=== PATIENT | male | born 1945 | race Caucasian/White ===

== ENCOUNTER 2017-03-16 04:01 | Emergency (ER) | payer MEDICARE, BC ==
[2017-03-16] MEDS ORDERED: HYDROCODONE/ACETAMINOPHEN 5-325 MG TABLET PO ONE (04:10)
[2017-03-16] MEDS ORDERED: ONDANSETRON 4 MG TAB.RAPDIS PO ONE (04:11)
[2017-03-16 04:43] LABS: ABSOLUTE EOSINOPHILS # (AUTO) 0.3 10^3/uL (0.0-0.6); ABSOLUTE LYMPHOCYTES (AUTO) 0.8 10^3/uL (0.5-4.7); ABSOLUTE MONOCYTES (AUTO) 0.7 10^3/uL (0.1-1.4); ABSOLUTE NEUT (AUTO) 4.9 10^3/uL (1.7-8.2); BASOPHILS % (AUTO) 0.5 % (0-2); EOSINOPHILS % (AUTO) 3.8 % (0-6); HEMOGLOBIN 14.4 g/dL (13.5-17.0); HGB HCT DIFFERENCE 1.2; LYMPHOCYTES % (AUTO) 12.5 % (13-45); MEAN CORPUSCULAR HEMOGLOBIN 32.9 pg (27.0-33.4); MEAN CORPUSCULAR HGB CONC 34.3 g/dL (32.0-36.0); MEAN CORPUSCULAR VOLUME 96 fl (80-97); MONOCYTES % (AUTO) 10.4 % (3-13); RED BLOOD COUNT 4.38 10^6/uL (4.35-5.55); RED CELL DISTRIBUTION WIDTH 15.1 % (11.5-14.0); SEGMENTED NEUTROPHILS % (AUTO) 72.8 % (42-78); WHITE BLOOD COUNT 6.7 10^3/uL (4.0-10.5)
[2017-03-16 04:57] LABS: ALANINE AMINOTRANSFERASE 28 U/L (21-72); ALBUMIN 4.4 g/dL (3.5-5.0); ALKALINE PHOSPHATASE 53 U/L (38-126); ANION GAP 16 (5-19); ASPARTATE AMINO TRANSFERASE 19 U/L (17-59); BILIRUBIN,DIRECT 0.4 mg/dL (0.0-0.4); BILIRUBIN,TOTAL 0.6 mg/dL (0.2-1.3); BLOOD UREA NITROGEN 23 mg/dL (7-20); CALCIUM 10.1 mg/dL (8.4-10.2); CARBON DIOXIDE 21 mmol/L (22-30); CHLORIDE 105 mmol/L (98-107); GLUCOSE 201 mg/dL (75-110); LIPASE 317.5 U/L (23-300); POTASSIUM 4.7 mmol/L (3.6-5.0); SODIUM 141.6 mmol/L (137-145); TOTAL PROTEIN 7.8 g/dL (6.3-8.2)
[2017-03-16 06:27] LABS: APPEARANCE,URINE SLIGHTLY-CLOUDY; BILIRUBIN,URINE NEGATIVE (NEGATIVE); GLUCOSE, URINE NEGATIVE (NEGATIVE); KETONES,URINE NEGATIVE (NEGATIVE); LEUKOCYTE ESTERASE,URINE MODERATE (NEGATIVE); NITRITE,URINE NEGATIVE (NEGATIVE); PROTEIN,URINE NEGATIVE (NEGATIVE); URINE SPECIFIC GRAVITY 1.012; UROBILINOGEN,URINE NEGATIVE mg/dL (<2.0)
--- NOTE | 2017-03-16 06:39 | ER Document Report ---
ED General - General Time seen by provider: 06:38 Mode of Arrival: Ambulatory TRAVEL OUTSIDE OF THE [place] IN LAST 30 DAYS: No - HPI Onset: Other - see HPI note Similar symptoms previously: Yes Recently seen / treated by doctor: No <TETO WOO - Last Filed: 03/16/17 07:30> <BECKY PEARSON - Last Filed: 03/16/17 09:29> - General Chief Complaint: Flank Pain Stated Complaint: FLANK AND STOMACH PAIN Notes: Patient is a 71 year old male presenting to the emergency department for flank pain. Patient states his pain was onset suddenly at 22:00 last night. Patient has had similar pain previously associated to a kidney stone. Patient was last seen in the emergency department for a kidney stone on 05/05/16 and it was removed 1 week later. Patient complains of nausea but denies any vomiting or fevers. Patient is a smoker and spouse states the patient had some cold like symptoms earlier this week. Patient' primary care physician is Dr. Barnes. (TETO WOO) - Related Data Allergies/Adverse Reactions: Iodinated Contrast Media - Oral and Allergy (Intermediate, Verified 05/05/16 10: 31) itching latex [Latex] Allergy (Verified 05/05/16 10:31) Past Medical History - General Information source: Patient, Relative - spouse - Social History Smoking Status: Current Every Day Smoker Cigarette use (# per day): Yes - 3/4 ppd Chew tobacco use (# tins/day): No Family History: None Patient has suicidal ideation: No Patient has homicidal ideation: No - Past Medical History Cardiac Medical History: Reports: Hx Coronary Artery Disease, Hx Heart Attack - 1, Hx Hypercholesterolemia, Hx Hypertension Pulmonary Medical History: Reports: Hx COPD, Hx Pneumonia Neurological Medical History: Reports: Hx Cerebrovascular Accident - x2, last one 2 years ago Endocrine Medical History: Reports: Hx Diabetes Mellitus Type 2 Renal/ Medical History: Reports: Hx Benign Prostatic Hyperplasia, Hx Kidney Stones Malignancy Medical History: Reports Hx Colorectal Cancer, Reports Hx Skin Cancer GI Medical History: Reports: Hx Diverticulitis Musculoskeltal Medical History: Reports Hx Arthritis, Reports Hx Musculoskeletal Trauma Psychiatric Medical History: Reports: Hx Anxiety, Hx Depression Traumatic Medical History: Reports: Hx Fractures Past Surgical History: Reports: Hx Appendectomy, Hx Bowel Surgery - resection, Hx Cardiac Catheterization, Hx Cardiac Surgery - right carotid, Hx Carotid Endarterectomy - Right carotid endarterectomy, Hx Coronary Stent - TOTAL OF 3 STENTS. Last one placed in December 2012., Hx Kidney (Renal Surgery) - lithotripsy, kidney stent, Hx Orthopedic Surgery - right shoulder, left knee - Immunizations Immunizations up to date: Yes Hx Diphtheria, Pertussis, Tetanus Vaccination: Yes <TETO WOO - Last Filed: 03/16/17 07:30> Review of Systems - Review of Systems Constitutional: No symptoms reported EENT: No symptoms reported Cardiovascular: No symptoms reported Respiratory: No symptoms reported Gastrointestinal: No symptoms reported Genitourinary: See HPI, Flank pain Male Genitourinary: No symptoms reported Musculoskeletal: No symptoms reported Skin: No symptoms reported Hematologic/Lymphatic: No symptoms reported Neurological/Psychological: No symptoms reported -: Yes All other systems reviewed and negative <TETO WOO - Last Filed: 03/16/17 07:30> Physical Exam - Vital signs Interpretation: Normal - General General appearance: Appears well, Alert In distress: Mild - HEENT Head: Normocephalic, Atraumatic Eyes: Normal Pupils: PERRL Mucous membranes: Moist - Respiratory Respiratory status: No respiratory distress Chest status: Nontender Breath sounds: Rhonchi, Wheezing Chest palpation: Normal - Cardiovascular Rhythm: Regular Heart sounds: Normal auscultation Murmur: No - Abdominal Inspection: Normal Distension: No distension Bowel sounds: Normal Tenderness: Nontender Organomegaly: No organomegaly - Back Back: Normal, Tender - left CVA tenderness and left lumbar musculature tenderness - Extremities General upper extremity: Normal inspection, Normal ROM, Normal strength General lower extremity: Normal inspection, Normal ROM, Normal strength - Neurological Neuro grossly intact: Yes Cognition: Normal Orientation: AAOx4 B[place] Coma Scale Eye Opening: Spontaneous Sergio Coma Scale Verbal: Oriented [place] Coma Scale Motor: Obeys Commands Sergio Coma Scale Total: 15 Speech: Normal Sensory: Normal - Psychological Associated symptoms: Normal affect, Normal mood - Skin Skin Temperature: Warm Skin Moisture: Dry <TETO WOO - Last Filed: 03/16/17 07:30> Course - Laboratory Result Diagrams: 03/16/17 04:28 03/16/17 04:28 <TETO WOO - Last Filed: 03/16/17 07:30> - Laboratory Result Diagrams: 03/16/17 04:28 03/16/17 04:28 - Diagnostic Test Radiology reviewed: Image reviewed, Reports reviewed - This CT limited stone protocol shows a 3 mm left distal ureteral stone with moderate hydronephrosis and hydroureter. There is also a suspicious nodule with satellite nodule seen in the right lower lobe. A contrasted CT scan shows a 2.6 cm soft tissue nodule in the right lower lobe with multiple small subcentimeter nodules throughout the right middle and upper lobes. - Consults Dr. Vincent Time consulted: 09:00 Consulted provider: follow-up in office <BECKY PEARSON - Last Filed: 03/16/17 09:29> - Re-evaluation Re-evalutation: 03/16/17 07:06 Patient reports he is allergic to iodinated IV contrast media. He states it causes him to itch. He states he is usually pretreated with Benadryl and steroids prior to receiving IV contrast. He also reports he had recently been wheezing and coughing some. 03/16/17 09:29 Patient reports his wheezing and breathing feels much better after the breathing treatment. He does not use inhalers or nebulizers at home. (BECKY PEARSON) - Vital Signs Vital signs: Temp Pulse Resp BP Pulse Ox 97.9 F 68 20 139/79 H 95 03/16/17 08:47 03/16/17 08:47 03/16/17 04:05 03/16/17 08:47 03/16/17 08:47 - Laboratory Laboratory results interpreted by me: 03/16/17 03/16/17 03/16/17 04:10 04:28 04:28 RDW 15.1 H Lymphocytes % 12.5 L Carbon Dioxide 21 L BUN 23 H Creatinine 1.40 H Est GFR (Non-Af Amer) 50 L Glucose 201 H Lipase 317.5 H Urine Blood LARGE H Ur Leukocyte Esterase MODERATE H Discharge <TETO WOO - Last Filed: 03/16/17 07:30> <BECKY PEARSON - Last Filed: 03/16/17 09:29> - Discharge Clinical Impression: Calculus of distal left ureter, Pulmonary nodules/lesions, multiple, Bronchitis with bronchospasm Urinary tract infection Qualifiers: Urinary tract infection type: site unspecified Hematuria presence: with hematuria Qualified Code(s): N39.0 - Urinary tract infection, site not specified COPD (chronic obstructive pulmonary disease) with emphysema Qualifiers: Emphysema type: unspecified Qualified Code(s): J43.9 - Emphysema, unspecified Condition: Stable Disposition: HOME, SELF-CARE Additional Instructions: The CT scan show you have a 3 mm stone in the left distal ureter. Your also found to have multiple nodules in the right lung. The urine suggested a urinary tract infection. You are wheezing due to your underlying COPD and possible recent upper respiratory tract infection. Take the medication as prescribed and drink plenty of fluids. Use the inhaler as dispensed, 2 puffs every 4-6 hours as needed for wheezing. Follow-up with your primary care provider this week for reevaluation of your wheezing. Follow-up with your urologist if you do not pass the kidney stone. Go to see Dr. Vincent at [facility] now. Prescriptions: Ciprofloxacin HCl [Cipro 500 mg Tablet] 500 mg PO BID #10 tablet Oxycodone HCl/Acetaminophen [Percocet 5-325 mg Tablet] 1 - 2 tab PO ASDIR PRN # 15 tablet PRN Reason: Referrals: ISAIAH VINCENT MD [ACTIVE STAFF] - 03/16/17 AISHWARYA BARNES MD [COMMUNITY BASED STAFF] - Follow up as needed Scribe Attestation: 03/16/17 09:28 I personally performed the services described in the documentation, reviewed and edited the documentation which was dictated to the scribe in my presence, and it accurately records my words and actions. (BECKY PEARSON) Scribe Documentation - Scribe Written by Scribe:: Teto Woo 03/16/17 7:40 acting as scribe for :: Yeison <TETO WOO - Last Filed: 03/16/17 07:30>
[2017-03-16] MEDS ORDERED: NORMAL SALINE 1000 ML 1,000 ML IV ONE (06:46)
[2017-03-16] MEDS ORDERED: ONDANSETRON HCL INJ/PF 4 MG/2 ML SDV IV ONE (06:47)
[2017-03-16] MEDS ORDERED: MORPHINE SULFATE 10 MG/ML INJ IV ONE ×2 (06:47→09:05)
[2017-03-16] MEDS ORDERED: METHYLPREDNISOLONE INJ 125 MG/2 ML SDV IV ONE (07:05)
[2017-03-16] MEDS ORDERED: DIPHENHYDRAMINE HCL 50 MG/ML VIAL IV ONE (07:05)
[2017-03-16] MEDS ORDERED: IPRATROPIUM/ALBUTEROL 0.5-2.5 MG/3 ML AMPUL NEB ONE (07:05)
[2017-03-16] MEDS ORDERED: CEFTRIAXONE 1 GM/D5W RTU 50 ML IV ONE (09:05)
[2017-03-16] MEDS ORDERED: ALBUTEROL SULFATE HFA (90 MCG/PUFF) 8 GM MDI (1 MDI/ER DISP) IH ONE (09:28)
[2017-03-16] MEDS ORDERED: HYDROCODONE/ACETAMINOPHEN 5-325 MG 6 TAB/DSPK PO PRN (09:28)
[2017-03-16] MEDS ORDERED: CIPROFLOXACIN HCL 500 MG TABLET PO ONE (09:29)
[2017-03-16 10:57] VITALS: BP 141/87
== END 2017-03-16 10:57 | disposition home or self-care (01) ==
LOC: ER 04:01
DX: N20.1 Calculus of ureter (principal); N39.0 Urinary tract infection, site not specified; R91.8 Other nonspecific abnormal finding of lung field; J44.9 Chronic obstructive pulmonary disease, unspecified; J20.9 Acute bronchitis, unspecified; J43.9 Emphysema, unspecified; R10.9 Unspecified abdominal pain; R11.0 Nausea; F17.210 Nicotine dependence, cigarettes, uncomplicated; Z87.442 Personal history of urinary calculi; Z91.040 Latex allergy status
CPT/HCPCS: 96376; 94640 ×2; 99284; 96361; 96375; 96365; 36415; 87086; 83690; 85025; 87088; 80053; 81001; 87186; 71260; 76380; A9270 ×5; J1200; J2930; J2270; J2405; J7030; J0696; J3490; J7620; S0119

== ENCOUNTER → 2017-03-27 | Outpatient (CLI) | payer MEDICARE, BC | LOC: RAD 21:42 | PROVIDERS: ATTEND Internal Medicine | DX: C34.31 Malignant neoplasm of lower lobe, right bronchus or lung (principal) | CPT/HCPCS: 78815; A9552 ==

== ENCOUNTER → 2017-04-08 | Outpatient (CLI) | payer MEDICARE, BC | LOC: RAD 09:03 | PROVIDERS: ATTEND Internal Medicine | DX: C34.31 Malignant neoplasm of lower lobe, right bronchus or lung (principal) | CPT/HCPCS: 70553; A9577 ==

== ENCOUNTER → 2017-10-25 | Outpatient (CLI) | payer MEDICARE, BC ==
--- NOTE | 2017-10-25 10:41 | RADIOLOGY REPORT (SQ) ---
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 CT from outside facility dated 06/30/2017. TECHNIQUE: CT scan performed of the chest without intravenous contrast. Images reviewed with lung, soft tissue and bone windows. Reconstructed coronal and sagittal MPR images reviewed. All images st ored on PACS. All CT scanners at this facility use dose modulation, iterative reconstruction, and/or weight based d osing when appropriate to reduce radiation dose to as low as reasonably achievable (ALARA). [facility]: Dose Right [facility]: CareDose [facility]: Dose Right [facility]: Teradose 4D [facility]: [employer] RADIATION DOSE: CT Rad equipment meets quality standard of care and radiation dose reduction techniq ues were employed. CTDIvol: 15.0 mGy. DLP: 562 mGy-cm. mGy. LIMITATIONS: No technical limitations. FINDINGS: LUNGS AND PLEURA: Mild emphysematous changes. Surgical changes with resection of the righ t lower lobe mass. No masses, infiltrates, pneumothorax. No pleural effusions, calcifications. HILAR AND MEDIASTINAL STRUCTURES: No identified masses or abnormal nodes. No obvious aneurysm. HEART AND VASCULAR STRUCTURES: No aneurysm. No pericardial effusion. UPPER ABDOMEN: No significant findings. Limited exam. THYROID AND OTHER SOFT TISSUES: No masses. No adenopathy. BONES: No significant finding. HARDWARE: None in the chest. OTHER: No other significant findings. IMPRESSION: SURGICAL CHANGES WITH RESECTION OF THE RIGHT LOWER LOBE MASS. NO OTHER SIGNIFICANT FIND ING ON NON-CONTRASTED CHEST CT. TECHNICAL DOCUMENTATION: JOB ID: [id number] Quality ID # 436: Final reports with documentation of one or more dose reduction techniques (e.g., Au tomated exposure control, adjustment of the mA and/or kV according to patient size, use of iterative reconstruction technique) 2010 [employer]- All Rights Reserved
== END ==
LOC: RAD 08:22
PROVIDERS: ATTEND Internal Medicine
DX: C34.31 Malignant neoplasm of lower lobe, right bronchus or lung (principal)
CPT/HCPCS: 71250

== ENCOUNTER → 2018-01-16 | Outpatient (CLI) | payer MEDICARE, BC ==
--- NOTE | 2018-01-16 10:06 | RADIOLOGY REPORT (SQ) ---
EXAM DESCRIPTION: CT CHEST WITHOUT COMPLETED DATE/TIME: 01/16/2018 8:22 am REASON FOR STUDY: LUNG CA (C34.31) C34.31 MALIGNANT NEOPLASM OF LOWER LOBE, RIGHT BRONCHUS OR L COMPARISON: CT chest 10/25/2017, 03/16/2017 TECHNIQUE: CT scan performed of the chest without intravenous contrast. Images reviewed with lung, soft tissue and bone windows. Reconstructed coronal and sagittal MPR images reviewed. All images st ored on PACS. All CT scanners at this facility use dose modulation, iterative reconstruction, and/or weight based d osing when appropriate to reduce radiation dose to as low as reasonably achievable (ALARA). [facility]: Dose Right [facility]: CareDose [facility]: Dose Right [facility]: Teradose 4D [facility]: [employer] RADIATION DOSE: CT Rad equipment meets quality standard of care and radiation dose reduction techniq ues were employed. CTDIvol: 16.0 mGy. DLP: 613 mGy-cm. mGy. LIMITATIONS: No technical limitations. FINDINGS: LUNGS AND PLEURA: Post right lower lobectomy. There are surgical andrew along the customer marketing manager ior aspect of the right upper lobe. No infiltrates. No worrisome pulmonary nodules. No pleural effusion. No pneumothorax. HILAR AND MEDIASTINAL STRUCTURES: No identified masses or abnormal nodes. No obvious aneurysm. HEART AND VASCULAR STRUCTURES: No aneurysm. No pericardial effusion. Very heavy coronary artery dionna cification UPPER ABDOMEN: Bowel anastomotic andrew right upper quadrant. 1 cm cyst left mid pole kidney. THYROID AND OTHER SOFT TISSUES: No masses. No adenopathy. BONES: No significant finding. HARDWARE: None in the chest. OTHER: No other significant findings. IMPRESSION: No CT evidence of local recurrence or metastatic lung cancer over the chest. Post right lower lobectomy. TECHNICAL DOCUMENTATION: JOB ID: [id number] Quality ID # 436: Final reports with documentation of one or more dose reduction techniques (e.g., Au tomated exposure control, adjustment of the mA and/or kV according to patient size, use of iterative reconstruction technique) 2010 [employer]- All Rights Reserved Reading location - IP/workstation name: [email or web address]
== END ==
LOC: RAD 08:11
PROVIDERS: ATTEND Internal Medicine
DX: C34.31 Malignant neoplasm of lower lobe, right bronchus or lung (principal)
CPT/HCPCS: 71250

== ENCOUNTER → 2018-04-25 | Outpatient (CLI) | payer MEDICARE, BC ==
--- NOTE | 2018-04-25 15:06 | RADIOLOGY REPORT (SQ) ---
EXAM DESCRIPTION: CT CHEST WITHOUT COMPLETED DATE/TIME: 04/25/2018 9:19 am REASON FOR STUDY: LUNG CA C34.31 MALIGNANT NEOPLASM OF LOWER LOBE, RIGHT BRONCHUS OR L COMPARISON: 01/16/2018 and 10/25/2017. TECHNIQUE: CT scan performed of the chest without intravenous contrast. Images reviewed with lung, soft tissue and bone windows. Reconstructed coronal and sagittal MPR images reviewed. All images st ored on PACS. All CT scanners at this facility use dose modulation, iterative reconstruction, and/or weight based d osing when appropriate to reduce radiation dose to as low as reasonably achievable (ALARA). [facility]: Dose Right [facility]: CareDose [facility]: Dose Right [facility]: Teradose 4D [facility]: [employer] RADIATION DOSE: CT Rad equipment meets quality standard of care and radiation dose reduction techniq ues were employed. CTDIvol: 18.1 mGy. DLP: 694 mGy-cm. mGy. LIMITATIONS: No technical limitations. FINDINGS: LUNGS AND PLEURA: Stable surgical changes on the right. Mild scarring. Mild emphysematou s changes and mild bronchiectasis. No pulmonary nodules or masses. No pleural effusion or pleural t hickening. HILAR AND MEDIASTINAL STRUCTURES: No identified masses or abnormal nodes. No obvious aneurysm. HEART AND VASCULAR STRUCTURES: No aneurysm. Fairly extensive coronary artery calcifications. No per icardial effusion. UPPER ABDOMEN: No significant findings. Limited exam. THYROID AND OTHER SOFT TISSUES: No masses. No adenopathy. BONES: No significant finding. HARDWARE: None in the chest. OTHER: No other significant findings. IMPRESSION: STABLE NONCONTRAST CT OF THE CHEST. STABLE SURGICAL CHANGES AND CHRONIC FINDINGS. NO P ULMONARY NODULES OR MASSES. NO EVIDENCE OF RESIDUAL OR RECURRENT DISEASE OR METASTASIS. TECHNICAL DOCUMENTATION: JOB ID: [id number] Quality ID # 436: Final reports with documentation of one or more dose reduction techniques (e.g., Au tomated exposure control, adjustment of the mA and/or kV according to patient size, use of iterative reconstruction technique) 2010 [employer]- All Rights Reserved Reading location - IP/workstation name: [email or web address]
== END ==
LOC: RAD 08:53
PROVIDERS: ATTEND Physician Assistant Medical
DX: C34.31 Malignant neoplasm of lower lobe, right bronchus or lung (principal)
CPT/HCPCS: 71250

== ENCOUNTER → 2018-06-20 | Outpatient (CLI) | payer MEDICARE, BC ==
[2018-06-20 11:23] LABS: HEMOGLOBIN 14.3 g/dL (13.5-17.0); MEAN CORPUSCULAR HEMOGLOBIN 32.2 pg (27.0-33.4); MEAN CORPUSCULAR HGB CONC 34.1 g/dL (32.0-36.0); MEAN CORPUSCULAR VOLUME 94 fl (80-97); PLATELET COUNT 234 10^3/uL (150-450); RED BLOOD COUNT 4.45 10^6/uL (4.35-5.55); RED CELL DISTRIBUTION WIDTH 14.3 % (11.5-14.0); WHITE BLOOD COUNT 7.1 10^3/uL (4.0-10.5)
[2018-06-20 11:39] LABS: ALANINE AMINOTRANSFERASE 65 U/L (21-72); ALBUMIN 4.8 g/dL (3.5-5.0); ALKALINE PHOSPHATASE 49 U/L (38-126); ANION GAP 16 (5-19); ASPARTATE AMINO TRANSFERASE 41 U/L (17-59); BILIRUBIN,DIRECT 0.3 mg/dL (0.0-0.4); BILIRUBIN,TOTAL 0.5 mg/dL (0.2-1.3); BLOOD UREA NITROGEN 18 mg/dL (7-20); CARBON DIOXIDE 22 mmol/L (22-30); CHLORIDE 108 mmol/L (98-107); GLUCOSE 134 mg/dL (75-110); POTASSIUM 4.8 mmol/L (3.6-5.0); SODIUM 145.9 mmol/L (137-145); TOTAL PROTEIN 8.4 g/dL (6.3-8.2)
== END ==
LOC: LAB 10:33
PROVIDERS: ATTEND Nurse Practitioner Family
DX: R19.7 Diarrhea, unspecified (principal); R53.82 Chronic fatigue, unspecified
CPT/HCPCS: 36415; 80053; 85027; 87324; 87493

== ENCOUNTER → 2018-08-31 | Outpatient (CLI) | payer MEDICARE, BC ==
--- NOTE | 2018-08-31 10:53 | RADIOLOGY REPORT (SQ) ---
EXAM DESCRIPTION: CT CHEST WITHOUT COMPLETED DATE/TIME: 08/31/2018 10:09 am REASON FOR STUDY: MALIGNANT NEOPLASM OF LOWER LOBE, RIGHT BRONCHUS OR LUNG C34.31 MALIGNANT NEOPLAS M OF LOWER LOBE, RIGHT BRONCHUS OR L COMPARISON: 04/25/2018 TECHNIQUE: CT scan performed of the chest without intravenous contrast. Images reviewed with lung, soft tissue and bone windows. Reconstructed coronal and sagittal MPR images reviewed. All images st ored on PACS. All CT scanners at this facility use dose modulation, iterative reconstruction, and/or weight based d osing when appropriate to reduce radiation dose to as low as reasonably achievable (ALARA). [facility]: Dose Right [facility]: CareDose [facility]: Dose Right [facility]: Teradose 4D [facility]: [employer] RADIATION DOSE: CT Rad equipment meets quality standard of care and radiation dose reduction techniq ues were employed. CTDIvol: 16.6 mGy. DLP: 646 mGy-cm. mGy. LIMITATIONS: No technical limitations. FINDINGS: LUNGS AND PLEURA: Prior right lower lobectomy. No evidence of recurrence or metastases. No infiltrate. No pleural effusion. HILAR AND MEDIASTINAL STRUCTURES: No identified masses or abnormal nodes. No obvious aneurysm. HEART AND VASCULAR STRUCTURES: No aneurysm. No pericardial effusion. Coronary atherosclerosis UPPER ABDOMEN: No significant findings. Limited exam. THYROID AND OTHER SOFT TISSUES: No masses. No adenopathy. BONES: No significant finding. HARDWARE: None in the chest. OTHER: No other significant findings. IMPRESSION: Stable surgical changes with no evidence of recurrence or metastases. Coronary atherosc lerosis. TECHNICAL DOCUMENTATION: JOB ID: [id number] Quality ID # [id number]: Final reports with documentation of one or more dose reduction techniques (e.g., Au tomated exposure control, adjustment of the mA and/or kV according to patient size, use of iterative reconstruction technique) 2010 [employer]- All Rights Reserved Reading location - IP/workstation name: [email or web address]
== END ==
LOC: RAD 09:59
PROVIDERS: ATTEND Physician Assistant Medical
DX: C34.31 Malignant neoplasm of lower lobe, right bronchus or lung (principal); I25.10 Atherosclerotic heart disease of native coronary artery without angina pectoris
CPT/HCPCS: 71250

== ENCOUNTER 2018-11-20 12:38 | Emergency (ER) | payer MEDICARE, BC ==
[2018-11-20] MEDS ORDERED: NORMAL SALINE 1000 ML 1,000 ML IV ONE ×3 (13:03→15:44)
--- NOTE | 2018-11-20 13:04 | ER Document Report ---
ED Medical Screen (RME) - General Chief Complaint: Urinary Problem Stated Complaint: POSSIBLE BLOOD IN URINE Time Seen by Provider: 11/20/18 13:03 TRAVEL OUTSIDE OF THE [place] IN LAST 30 DAYS: No - HPI Notes: 11/20/18 13:03 Patient is a 73-year-old male that presents to the emergency department for chief complaint of hematuria. Patient has multiple complaints. He started having hematuria last night but has had urinary frequency for the past few days. He also complains of a bilateral lower abdominal pain that is burning and worse with urination. Patient reports low back pain for the last week. He has also had a sore throat for the last 2 weeks. He also is complaining of vertigo sensation when he lays down to go to bed for the last 2 weeks. He denies fevers.. ROS: GENERAL: Denies fever of chills CV: Denies chest pain PHYSICAL EXAMINATION: GENERAL: Well-appearing, well-nourished and in no acute distress. HEAD: Atraumatic, normocephalic. EYES: Pupils equal round extraocular movements intact, conjunctiva are normal. ENT: Nares patent NECK: Normal range of motion LUNGS: No respiratory distress Musculoskeletal: Normal range of motion NEUROLOGICAL: Normal speech, normal gait. PSYCH: Normal mood, normal affect. MDM: Patient seen and examined for rapid initial assessment. Vital signs reviewed. A comprehensive ED assessment and evaluation of the patient, analysis of test results and completion of the medical decision making process will be conducted by additional ED providers. - Related Data Allergies/Adverse Reactions: Iodinated Contrast- Oral and IV Dye Allergy (Intermediate, Verified 11/20/18 12:39) itching latex [Latex] Allergy (Verified 11/20/18 12:39) Past Medical History - Social History Chew tobacco use (# tins/day): No Frequency of alcohol use: None Drug Abuse: None - Past Medical History Cardiac Medical History: Reports: Hx Coronary Artery Disease, Hx Heart Attack - 1, Hx Hypercholesterolemia, Hx Hypertension Pulmonary Medical History: Reports: Hx COPD, Hx Pneumonia Neurological Medical History: Reports: Hx Cerebrovascular Accident - x2, last one 2 years ago Endocrine Medical History: Reports: Hx Diabetes Mellitus Type 2 Renal/ Medical History: Reports: Hx Benign Prostatic Hyperplasia, Hx Kidney Stones. Denies: Hx Peritoneal Dialysis Malignancy Medical History: Reports Hx Colorectal Cancer, Reports Hx Skin Cancer GI Medical History: Reports: Hx Diverticulitis Musculoskeltal Medical History: Reports Hx Arthritis, Reports Hx Musculoskeletal Trauma Psychiatric Medical History: Reports: Hx Anxiety, Hx Depression Traumatic Medical History: Reports: Hx Fractures Past Surgical History: Reports: Hx Appendectomy, Hx Bowel Surgery - resection, Hx Cardiac Catheterization, Hx Cardiac Surgery - right carotid, Hx Carotid Endarterectomy - Right carotid endarterectomy, Hx Coronary Stent - TOTAL OF 3 STENTS. Last one placed in December 2012., Hx Kidney (Renal Surgery) - lithotripsy, kidney stent, Hx Orthopedic Surgery - right shoulder, left knee - Immunizations Immunizations up to date: Yes Hx Diphtheria, Pertussis, Tetanus Vaccination: Yes Physical Exam - Vital signs Vitals: Temp Pulse Resp BP Pulse Ox 98.2 F 70 18 159/96 H 92 11/20/18 12:48 11/20/18 12:48 11/20/18 12:48 11/20/18 12:48 11/20/18 12:48 Course - Vital Signs Vital signs: Temp Pulse Resp BP Pulse Ox 98.2 F 70 18 159/96 H 92 11/20/18 12:48 11/20/18 12:48 11/20/18 12:48 11/20/18 12:48 11/20/18 12:48 Doctor's Discharge - Discharge Referrals: KP CARDENAS PA-C [Primary Care Provider] - Follow up as needed
[2018-11-20 13:25] LABS: APPEARANCE,URINE SLIGHTLY-CLOUDY; BILIRUBIN,URINE NEGATIVE (NEGATIVE); COLOR,URINE YELLOW; GLUCOSE, URINE >=500 mg/dL (NEGATIVE); KETONES,URINE NEGATIVE (NEGATIVE); LEUKOCYTE ESTERASE,URINE MODERATE (NEGATIVE); NITRITE,URINE NEGATIVE (NEGATIVE); PROTEIN,URINE NEGATIVE (NEGATIVE); URINE SPECIFIC GRAVITY 1.026; UROBILINOGEN,URINE NEGATIVE mg/dL (<2.0)
[2018-11-20 13:35] LABS: ABSOLUTE BASOPHILS # (AUTO) 0.1 10^3/uL (0.0-0.2); ABSOLUTE LYMPHOCYTES (AUTO) 0.8 10^3/uL (0.5-4.7); ABSOLUTE MONOCYTES (AUTO) 0.7 10^3/uL (0.1-1.4); ABSOLUTE NEUT (AUTO) 12.5 10^3/uL (1.7-8.2); BASOPHILS % (AUTO) 0.5 % (0-2); EOSINOPHILS % (AUTO) 0.1 % (0-6); HEMATOCRIT 45.1 % (37.9-51.0); HEMOGLOBIN 15.4 g/dL (13.5-17.0); LYMPHOCYTES % (AUTO) 5.6 % (13-45); MEAN CORPUSCULAR HEMOGLOBIN 32.5 pg (27.0-33.4); MEAN CORPUSCULAR HGB CONC 34.2 g/dL (32.0-36.0); MEAN CORPUSCULAR VOLUME 95 fl (80-97); MONOCYTES % (AUTO) 5.3 % (3-13); PLATELET COUNT 266 10^3/uL (150-450); RED BLOOD COUNT 4.74 10^6/uL (4.35-5.55); RED CELL DISTRIBUTION WIDTH 14.2 % (11.5-14.0); SEGMENTED NEUTROPHILS % (AUTO) 88.5 % (42-78); TOTAL CELLS COUNTED % (AUTO) 100 %; WHITE BLOOD COUNT 14.1 10^3/uL (4.0-10.5)
[2018-11-20 13:46] LABS: VENOUS BLOOD BASE EXCESS -2.2 mmol/L; VENOUS BLOOD HCO3 20.4 mmol/L (20-32); VENOUS BLOOD PH 7.45 (7.30-7.42)
[2018-11-20 13:58] LABS: ALANINE AMINOTRANSFERASE 102 U/L (21-72); ALBUMIN 4.7 g/dL (3.5-5.0); ALKALINE PHOSPHATASE 63 U/L (38-126); ANION GAP 17 (5-19); ASPARTATE AMINO TRANSFERASE 50 U/L (17-59); BILIRUBIN,DIRECT 0.3 mg/dL (0.0-0.4); BILIRUBIN,TOTAL 0.8 mg/dL (0.2-1.3); BLOOD UREA NITROGEN 26 mg/dL (7-20); CALCIUM 10.7 mg/dL (8.4-10.2); CARBON DIOXIDE 20 mmol/L (22-30); CHLORIDE 98 mmol/L (98-107); POTASSIUM 4.4 mmol/L (3.6-5.0); SODIUM 134.5 mmol/L (137-145); TOTAL PROTEIN 7.9 g/dL (6.3-8.2)
[2018-11-20 14:11] LABS: GLUCOSE 521 mg/dL (75-110)
--- NOTE | 2018-11-20 14:59 | ER Document Report ---
ED General - General Chief Complaint: Urinary Problem Stated Complaint: POSSIBLE BLOOD IN URINE Time Seen by Provider: 11/20/18 13:03 Mode of Arrival: Ambulatory Information source: Patient Notes: 73-year-old male presents emergency department multiple complaints. Patient states that his main complaint for coming to the emergency department is hematuria and lower abdominal pain. Patient states that this started yesterday and is been constant. He describes the pain is an aching sensation in the suprapubic area. He denies any radiation of the pain. He denies any alleviating or exacerbating factors. Patient denies any dysuria, increased urgency, increased frequency. Patient denies any associated nausea, vomiting, diarrhea, constipation. Patient states that he is also having a hoarse, muffled voice for the last 2 weeks. He denies a sore throat. Patient also states that he has vertigo when he lays completely flat. Patient states that it resolves if he is slightly elevated He denies any vision changes, speech changes, numbness, tingling, weakness, ataxia. Patient does have a history of cancer. 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 Patient states that he follows up with Dr. Cunningham. He states that he is currently cancer free. TRAVEL OUTSIDE OF THE [place] IN LAST 30 DAYS: No - HPI Onset: Yesterday Onset/Duration: Sudden Quality of pain: Sharp, Stabbing, Throbbing Severity: Mild Associated symptoms: None Exacerbated by: Denies Relieved by: Denies Similar symptoms previously: Yes Recently seen / treated by doctor: No - Related Data Allergies/Adverse Reactions: Iodinated Contrast- Oral and IV Dye Allergy (Intermediate, Verified 11/20/18 12:39) itching latex [Latex] Allergy (Verified 11/20/18 12:39) Past Medical History - General Information source: Patient - Social History Smoking Status: Former Smoker Chew tobacco use (# tins/day): No Frequency of alcohol use: None Drug Abuse: None Family History: None Patient has suicidal ideation: No Patient has homicidal ideation: No - Past Medical History Cardiac Medical History: Reports: Hx Coronary Artery Disease, Hx Heart Attack - 1, Hx Hypercholesterolemia, Hx Hypertension Pulmonary Medical History: Reports: Hx COPD, Hx Pneumonia Neurological Medical History: Reports: Hx Cerebrovascular Accident - x2, last one 2 years ago Endocrine Medical History: Reports: Hx Diabetes Mellitus Type 2 Renal/ Medical History: Reports: Hx Benign Prostatic Hyperplasia, Hx Kidney Stones. Denies: Hx Peritoneal Dialysis Malignancy Medical History: Reports Hx Colorectal Cancer, Reports Hx Skin Cancer GI Medical History: Reports: Hx Diverticulitis Musculoskeletal Medical History: Reports Hx Arthritis, Reports Hx Musculoskeletal Trauma Psychiatric Medical History: Reports: Hx Anxiety, Hx Depression Traumatic Medical History: Reports: Hx Fractures Past Surgical History: Reports: Hx Appendectomy, Hx Bowel Surgery - resection, Hx Cardiac Catheterization, Hx Cardiac Surgery - right carotid, Hx Carotid Endarterectomy - Right carotid endarterectomy, Hx Coronary Stent - TOTAL OF 3 STENTS. Last one placed in December 2012., Hx Kidney (Renal Surgery) - lithotripsy, kidney stent, Hx Orthopedic Surgery - right shoulder, left knee - Immunizations Immunizations up to date: Yes Hx Diphtheria, Pertussis, Tetanus Vaccination: Yes Review of Systems - Review of Systems Constitutional: No symptoms reported EENT: Other - hoarse voice. Cardiovascular: No symptoms reported Respiratory: No symptoms reported Gastrointestinal: Abdominal pain Genitourinary: Hematuria Male Genitourinary: No symptoms reported Musculoskeletal: No symptoms reported Skin: No symptoms reported Neurological/Psychological: Other - vertigo -: Yes All other systems reviewed and negative Physical Exam - Vital signs Vitals: Temp Pulse Resp BP Pulse Ox 98.2 F 70 18 159/96 H 92 11/20/18 12:48 11/20/18 12:48 11/20/18 12:48 11/20/18 12:48 11/20/18 12:48 - Notes Notes: PHYSICAL EXAMINATION: GENERAL: Well-appearing, well-nourished and in no acute distress. HEAD: Atraumatic, normocephalic. EYES: Pupils equal round and reactive to light, extraocular movements intact, sclera anicteric, conjunctiva are normal. ENT: Nares patent, oropharynx clear without exudates. Moist mucous membranes. No uvula deviation. No trismus. No peritonsillar soft tissue swelling. NECK: Normal range of motion, supple without lymphadenopathy LUNGS: Breath sounds clear to auscultation bilaterally and equal. No wheezes r ales or rhonchi. HEART: Regular rate and rhythm without murmurs ABDOMEN: Soft, tenderness to palpation in the lower abdomen. No rebound or guarding. Normal active bowel sounds. Musculoskeletal: Normal range of motion, no pitting or edema. No cyanosis. NEUROLOGICAL: Cranial nerves grossly intact. Normal speech, normal gait. Normal sensory, motor exams PSYCH: Normal mood, normal affect. SKIN: Warm, Dry, normal turgor, no rashes or lesions noted. Course - Re-evaluation Re-evalutation: 11/20/18 18:30 Labs and imaging obtained. Patient's white blood cell count is up at 14.1. His glucose is up at 521. Urinalysis shows signs of infection. Patient was given IV fluids. A repeat of his blood sugar shows that it is now 296. ABG does not show acidosis. No ketones in the urine. Normal anion gap. CT soft tissue neck and abd/pel were obtained. No acute process were seen. Patient's abdominal symptoms likely from UTI. Blood cultures obtained. Patient given 1G of rocephin in the emergency department. Patient has an appointment with his urologist next month. I will refer the patient to ENT for his hoarse voice. He has no neurologic deficits on exam. His vertigo likely Benign positional vertigo. I instructed the patient to follow-up with his primary care physician this week, to take the medication prescribed as directed, and to return to the emergency department if he has any worsening symptoms. Patient is agreeable to plan of care. 11/20/18 18:31 - Vital Signs Vital signs: Temp Pulse Resp BP Pulse Ox 98.2 F 70 18 159/96 H 92 11/20/18 12:48 11/20/18 12:48 11/20/18 12:48 11/20/18 12:48 11/20/18 12:48 - Laboratory Result Diagrams: 11/20/18 13:19 11/20/18 13:19 Laboratory results interpreted by me: 11/20/18 11/20/18 11/20/18 12:40 13:19 13:19 WBC 14.1 H RDW 14.2 H Seg Neutrophils % 88.5 H Lymphocytes % 5.6 L Absolute Neutrophils 12.5 H VBG pH VBG pCO2 Sodium 134.5 L Carbon Dioxide 20 L BUN 26 H Glucose 521 H* POC Glucose Calcium 10.7 H ALT 102 H Urine Glucose (UA) >=500 H Urine Blood MODERATE H Ur Leukocyte Esterase MODERATE H 11/20/18 11/20/18 13:19 16:43 WBC RDW Seg Neutrophils % Lymphocytes % Absolute Neutrophils VBG pH 7.45 H VBG pCO2 30.0 L Sodium Carbon Dioxide BUN Glucose POC Glucose 296 H Calcium ALT Urine Glucose (UA) Urine Blood Ur Leukocyte Esterase Discharge - Discharge Clinical Impression: Hoarseness of voice Urinary tract infection Qualifiers: Urinary tract infection type: site unspecified Hematuria presence: with hematuria Qualified Code(s): N39.0 - Urinary tract infection, site not specified; R31.9 - Hematuria, unspecified Benign positional vertigo Qualifiers: Laterality: unspecified laterality Qualified Code(s): H81.10 - Benign paroxysmal vertigo, unspecified ear Condition: Stable Disposition: HOME, SELF-CARE Instructions: Urinary Tract Infection ([facility]), Cephalexin ([facility]) Additional Instructions: [facility], Throat Dr. Schro[address] [place] [address] Prescriptions: Cephalexin Monohydrate [Keflex 500 mg Capsule] 500 mg PO BID 7 Days #14 capsule Referrals: KP CARDENAS PA-C [ALLIED HEALTH PROFESSIONAL] - Follow up as needed
[2018-11-20] MEDS ORDERED: METHYLPREDNISOLONE INJ 125 MG/2 ML SDV IV ONE (15:00)
[2018-11-20] MEDS ORDERED: DIPHENHYDRAMINE HCL 50 MG/ML VIAL IV ONE (15:00)
[2018-11-20] MEDS ORDERED: FENTANYL CITRATE INJ/PF 100 MCG/2 ML AMPUL IV ONE (15:06)
[2018-11-20] MEDS ORDERED: MECLIZINE HCL 25 MG TABLET PO ONE (15:06)
--- NOTE | 2018-11-20 16:33 | RADIOLOGY REPORT (SQ) ---
EXAM DESCRIPTION: CT SOFT TISSUE NECK WITH COMPLETED DATE/TIME: 11/20/2018 4:21 pm REASON FOR STUDY: hoarse voice x 2 weeks COMPARISON: None. TECHNIQUE: Post IV contrasted scanning from skull base through lung apices with review of bone, soft tissue and lung windows. Reconstructed coronal and sagittal MPR images reviewed. All images stored on PACS. All CT scanners at this facility use dose modulation, iterative reconstruction, and/or weight based d osing when appropriate to reduce radiation dose to as low as reasonably achievable (ALARA). [facility]: Dose Right [facility]: CareDose [facility]: Dose Right [facility]: Teradose 4D [facility]: [employer] CONTRAST TYPE AND DOSE: 100 mL Omnipaque 350- low osmolar. RENAL FUNCTION: BUN 26 creatinine 1.14. RADIATION DOSE: . LIMITATIONS: None. FINDINGS: SKULL BASE: Intact. MAJOR SALIVARY GLANDS: No solid or cystic masses. No inflammatory changes. LYMPHADENOPATHY: No adenopathy. MUCOSAL MASSES OR ASYMMETRY: No mucosal masses or asymmetry. LARYNX/CORDS: No abnormal findings. VASCULAR STRUCTURES: The major vessels are patent. LUNG APICES: Clear. BONES: Intact. THYROID: Normal size. No masses. PARANASAL SINUSES: Clear. OTHER: No other significant finding. IMPRESSION: NO SIGNIFICANT FINDING IN THE SOFT TISSUES OF THE NECK. TECHNICAL DOCUMENTATION: JOB ID: [id number] Quality ID # [id number]: Final reports with documentation of one or more dose reduction techniques (e.g., Au tomated exposure control, adjustment of the mA and/or kV according to patient size, use of iterative reconstruction technique) 2010 [employer]- All Rights Reserved Reading location - IP/workstation name: [facility]
--- NOTE | 2018-11-20 18:01 | RADIOLOGY REPORT (SQ) ---
EXAM DESCRIPTION: CT ABD/PELVIS WITH IV ONLY COMPLETED DATE/TIME: 11/20/2018 4:21 pm REASON FOR STUDY: abdominal pain COMPARISON: CT chest 06/25/2018. CT renal stone 03/16/2017 TECHNIQUE: CT scan of the abdomen and pelvis performed using helical scanning technique with dynamic intravenous contrast injection. No oral contrast. Images reviewed with lung, soft tissue, and bone windows. Reconstructed coronal and sagittal MPR images reviewed. Delayed images for evaluation of the urinary system also acquired. All images stored on PACS. All CT scanners at this facility use dose modulation, iterative reconstruction, and/or weight based d osing when appropriate to reduce radiation dose to as low as reasonably achievable (ALARA). [facility]: Dose Right [facility]: CareDose [facility]: Dose Right [facility]: Teradose 4D [facility]: [employer] CONTRAST TYPE AND DOSE: contrast/concentration: Isovue 350.00 mg/ml; Total Contrast Delivered: 100.0 ml; Total Saline Delivered: 72.0 ml RENAL FUNCTION: BUN 26 creatinine 1.14 RADIATION DOSE: CT Rad equipment meets quality standard of care and radiation dose reduction techniq ues were employed. CTDIvol: 17.2 - 28.0 mGy. DLP: 3955 mGy-cm.. LIMITATIONS: None. FINDINGS: LOWER CHEST: No significant findings. No nodules or infiltrates. LIVER: Normal size. No masses. No dilated ducts. SPLEEN: Normal size. No focal lesions. PANCREAS: No masses. No significant calcifications. No adjacent inflammation or peripancreatic fluid collections. Pancreatic duct not dilated. GALLBLADDER: No identified stones by CT criteria. No inflammatory changes to suggest cholecystitis. ADRENAL GLANDS: There is stable small left adrenal nodule. RIGHT KIDNEY AND URETER: No solid masses. No significant calcifications. No hydronephrosis or hyd roureter. LEFT KIDNEY AND URETER: No solid masses. No significant calcifications. No hydronephrosis or hydr oureter. AORTA AND VESSELS: No aneurysm. No dissection. Renal arteries, SMA, celiac without stenosis. RETROPERITONEUM: No retroperitoneal adenopathy, hemorrhage or masses. BOWEL AND PERITONEAL CAVITY: No masses or inflammatory changes. No free fluid or peritoneal masses. APPENDIX: Not identified. PELVIS: No mass. No free fluid. Normal bladder. ABDOMINAL WALL: No masses. No hernias. BONES: No significant or acute findings. OTHER: No other significant finding. IMPRESSION: Stable small left adrenal nodule. No acute findings in the abdomen or pelvis. TECHNICAL DOCUMENTATION: JOB ID: [id number] Quality ID # [id number]: Final reports with documentation of one or more dose reduction techniques (e.g., Au tomated exposure control, adjustment of the mA and/or kV according to patient size, use of iterative reconstruction technique) 2010 [employer]- All Rights Reserved Reading location - IP/workstation name: [email or web address]
[2018-11-20] MEDS ORDERED: CEFTRIAXONE INJ 1000 MG VIAL IV ONE (18:27)
[2018-11-20 19:39] VITALS: BP 153/88
== END 2018-11-20 19:50 | disposition home or self-care (01) ==
LOC: ER 12:38
DX: N39.0 Urinary tract infection, site not specified (principal); R31.9 Hematuria, unspecified; H81.10 Benign paroxysmal vertigo, unspecified ear; R10.30 Lower abdominal pain, unspecified; R49.0 Dysphonia; I25.10 Atherosclerotic heart disease of native coronary artery without angina pectoris; I25.2 Old myocardial infarction; I10 Essential (primary) hypertension; J44.9 Chronic obstructive pulmonary disease, unspecified; E11.9 Type 2 diabetes mellitus without complications; Z85.118 Personal history of other malignant neoplasm of bronchus and lung; Z85.048 Personal history of other malignant neoplasm of rectum, rectosigmoid junction, and anus; Z91.040 Latex allergy status; Z91.041 Radiographic dye allergy status; Z87.891 Personal history of nicotine dependence
CPT/HCPCS: 99283; 96361; 96375; 96365; 36415; 87040; 87086; 82962; 85025; 80053; 81001; 82803; 70491; 74177; J1200; J3010; A9270; J2930; J0696; J7030

== ENCOUNTER 2018-11-30 17:01 | Observation (INO) | payer MEDICARE, BC ==
[2018-11-30 19:30] LABS: ABSOLUTE BASOPHILS # (AUTO) 0.1 10^3/uL (0.0-0.2); ABSOLUTE EOSINOPHILS # (AUTO) 0.2 10^3/uL (0.0-0.6); ABSOLUTE LYMPHOCYTES (AUTO) 1.2 10^3/uL (0.5-4.7); ABSOLUTE MONOCYTES (AUTO) 1.1 10^3/uL (0.1-1.4); BASOPHILS % (AUTO) 0.6 % (0-2); EOSINOPHILS % (AUTO) 2.1 % (0-6); HEMATOCRIT 43.1 % (37.9-51.0); HEMOGLOBIN 14.6 g/dL (13.5-17.0); LYMPHOCYTES % (AUTO) 13.9 % (13-45); MEAN CORPUSCULAR HEMOGLOBIN 32.6 pg (27.0-33.4); MEAN CORPUSCULAR HGB CONC 33.9 g/dL (32.0-36.0); MEAN CORPUSCULAR VOLUME 96 fl (80-97); MONOCYTES % (AUTO) 13.2 % (3-13); PLATELET COUNT 245 10^3/uL (150-450); RED BLOOD COUNT 4.48 10^6/uL (4.35-5.55); RED CELL DISTRIBUTION WIDTH 14.1 % (11.5-14.0); SEGMENTED NEUTROPHILS % (AUTO) 70.2 % (42-78); TOTAL CELLS COUNTED % (AUTO) 100 %; WHITE BLOOD COUNT 8.6 10^3/uL (4.0-10.5)
--- NOTE | 2018-11-30 19:49 | RADIOLOGY REPORT (SQ) ---
EXAM DESCRIPTION: CT HEAD WITHOUT COMPLETED DATE/TIME: 11/30/2018 7:39 pm REASON FOR STUDY: gait instability COMPARISON: 04/08/2017. TECHNIQUE: Axial images acquired through the brain without intravenous contrast. Images reviewed wi th bone, brain and subdural windows. Additional sagittal and coronal reconstructions were generated. Images stored on PACS. All CT scanners at this facility use dose modulation, iterative reconstruction, and/or weight based d osing when appropriate to reduce radiation dose to as low as reasonably achievable (ALARA). [facility]: Dose Right [facility]: CareDose [facility]: Dose Right [facility]: Teradose 4D [facility]: [employer] RADIATION DOSE: CT Rad equipment meets quality standard of care and radiation dose reduction techniq ues were employed. CTDIvol: 53.2 mGy. DLP: 991 mGy-cm.mGy. LIMITATIONS: None. FINDINGS: VENTRICLES: Prominent. CEREBRUM: No masses. No hemorrhage. No midline shift. Areas of low density in the white matter mos t likely due to chronic micro-vascular ischemic change. No evidence for acute infarction. CEREBELLUM: No masses. No hemorrhage. No alteration of density. No evidence for acute infarction. EXTRAAXIAL SPACES: Age-related involutional change. No fluid collections. No masses. ORBITS AND GLOBE: No intra- or extraconal masses. Normal contour of globe without masses. CALVARIUM: No fracture. PARANASAL SINUSES: No fluid or mucosal thickening. SOFT TISSUES: No mass or hematoma. OTHER: No other significant finding. IMPRESSION: CHRONIC CHANGES OF ATROPHY AND MICROVASCULAR ISCHEMIA. NO ACUTE PROCESS. EVIDENCE OF ACUTE STROKE: NO. TECHNICAL DOCUMENTATION: JOB ID: [id number] Quality ID # [id number]: Final reports with documentation of one or more dose reduction techniques (e.g., Au tomated exposure control, adjustment of the mA and/or kV according to patient size, use of iterative reconstruction technique) 2010 [employer]- All Rights Reserved Reading location - IP/workstation name: [email or web address]
--- NOTE | 2018-11-30 20:02 | RADIOLOGY REPORT (SQ) ---
EXAM DESCRIPTION: CHEST SINGLE VIEW COMPLETED DATE/TIME: 11/30/2018 7:53 pm REASON FOR STUDY: weakness COMPARISON: 03/25/2016. EXAM PARAMETERS: NUMBER OF VIEWS: One view. TECHNIQUE: Single frontal radiographic view of the chest acquired. RADIATION DOSE: NA LIMITATIONS: None. FINDINGS: LUNGS AND PLEURA: No opacities, masses or pneumothorax. No pleural effusion. MEDIASTINUM AND HILAR STRUCTURES: No masses. Contour normal. HEART AND VASCULAR STRUCTURES: Heart normal in size. Normal vasculature. BONES: No acute findings. HARDWARE: None in the chest. OTHER: No other significant finding. IMPRESSION: NO ACUTE RADIOGRAPHIC FINDING IN THE CHEST. TECHNICAL DOCUMENTATION: JOB ID: [id number] 9349 [employer]- All Rights Reserved Reading location - IP/workstation name: [email or web address]
[2018-11-30 20:18] LABS: ALANINE AMINOTRANSFERASE 62 U/L (21-72); ALBUMIN 4.8 g/dL (3.5-5.0); ALKALINE PHOSPHATASE 62 U/L (38-126); ANION GAP 13 (5-19); ASPARTATE AMINO TRANSFERASE 65 U/L (17-59); BILIRUBIN,DIRECT 0.3 mg/dL (0.0-0.4); BILIRUBIN,TOTAL 0.5 mg/dL (0.2-1.3); BLOOD UREA NITROGEN 17 mg/dL (7-20); CALCIUM 10.8 mg/dL (8.4-10.2); CARBON DIOXIDE 24 mmol/L (22-30); CHLORIDE 103 mmol/L (98-107); CREATINE KINASE 77 U/L (55-170); GLUCOSE 232 mg/dL (75-110); POTASSIUM 4.8 mmol/L (3.6-5.0); SODIUM 140.3 mmol/L (137-145); TOTAL PROTEIN 7.9 g/dL (6.3-8.2)
[2018-11-30 20:29] LABS: CREATINE KINASE MB 0.77 ng/mL (<4.55)
[2018-11-30 20:30] LABS: TROPONIN I < 0.012 ng/mL
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
[2018-11-30 21:22] LABS: APPEARANCE,URINE CLOUDY; BILIRUBIN,URINE NEGATIVE (NEGATIVE); CALCIUM OXALATE CRYSTALS,URINE TOO NUMEROUS TO CNT /HPF; COLOR,URINE YELLOW; GLUCOSE, URINE 150 mg/dL (NEGATIVE); KETONES,URINE NEGATIVE (NEGATIVE); LEUKOCYTE ESTERASE,URINE LARGE (NEGATIVE); NITRITE,URINE NEGATIVE (NEGATIVE); PROTEIN,URINE 100 mg/dL (NEGATIVE); UROBILINOGEN,URINE NEGATIVE mg/dL (<2.0)
[2018-11-30] MEDS ORDERED: DEXTROSE 40% GEL 15 GM TUBE PO PRN ×2 (22:15)
[2018-11-30] MEDS ORDERED: GLUCAGON,HUMAN RECOMB 1 MG INJ IM PRN (22:15)
[2018-11-30] MEDS ORDERED: INSULIN REG, HUMAN 100 UNIT/ML 3 ML VIAL (PYX) SUBCUT PRN (22:15)
[2018-11-30] MEDS ORDERED: DEXTROSE 50%-WATER 25 GM/50 ML DISP.SYRIN IV PRN ×2 (22:15)
[2018-11-30] MEDS ORDERED: MAGNESIUM HYDROXIDE SUSP 30 ML UDCUP PO PRN (22:19)
[2018-11-30] MEDS ORDERED: MAG HYDROX/AL HYDROX/SIMETH SUSP 30 ML UDCUP PO PRN (22:19)
[2018-11-30] MEDS ORDERED: ONDANSETRON HCL INJ/PF 4 MG/2 ML SDV IV PRN (22:19)
[2018-11-30] MEDS ORDERED: ONDANSETRON 4 MG TAB.RAPDIS PO PRN (22:19)
[2018-11-30] MEDS ORDERED: ACETAMINOPHEN 325 MG TABLET PO PRN (22:24)
[2018-11-30] MEDS ORDERED: ALBUTEROL SULFATE 0.083% NEB 2.5 MG/3 ML AMPUL NEB PRN (22:24)
[2018-11-30] MEDS ORDERED: ACETAMINOPHEN 650 MG SUPP.RECT PR PRN (22:24)
[2018-11-30] MEDS ORDERED: METFORMIN HCL 500 MG TABLET PO ONE (23:00)
[2018-11-30] MEDS ORDERED: ATORVASTATIN CALCIUM 40 MG TABLET PO ONE (23:05)
[2018-11-30] MEDS ORDERED: INSULIN GLARGINE,HUM.REC.ANLOG 300 UNIT/3 ML INSULN.PEN SUBCUT ONE (23:10)
[2018-11-30] MEDS ORDERED: METOPROLOL TARTRATE 50 MG TABLET PO ONE (23:10)
[2018-11-30] MEDS ORDERED: SCOPOLAMINE HYDROBROMIDE 1.5 MG PATCH.TD72 TD ONE (23:10)
[2018-12-01] MEDS ORDERED: FLUCONAZOLE 100 MG TABLET PO ONE (00:15)
[2018-12-01 01:13] LABS: URINE AMPHETAMINES SCREEN NEGATIVE; URINE BARBITURATES SCREEN NEGATIVE; URINE BENZODIAZEPINES SCREEN NEGATIVE; URINE COCAINE SCREEN NEGATIVE; URINE MARIJUANA (THC) SCREEN NEGATIVE; URINE METHADONE SCREEN NEGATIVE; URINE PHENCYCLIDINE SCREEN NEGATIVE
--- NOTE | 2018-12-01 05:46 | PDOC H&P ---
History of Present Illness Admission Date/PCP: 11/30/18 21:47 AISHWARYA VERMA MD Patient complains of: Difficulty with balance History of Present Illness: BIRD LOCKWOOD is a 73 year old male who presents to the emergency room with a 3- day history of difficulty with his balance causing him to lean and (nearly) fall to the right. He and his admit that he has been having essentially continuous difficulty with his balance over the last 3 days that has been accompanied by intermittent confusion and episodes of hyperglycemia. He has been noted by his to actually allow the car to drift to the right as he seems to be leaning to the right when driving. In the emergency room he was found to have a normal CT scan of the head without contrast and mild to moderate hyperglycemia. Because of his symptoms it was felt that he should be admitted to observation status and a MRI of the head obtained during his observation course. Additionally efforts at correcting his balance disturbance can be initiated and evaluated. His diabetes therapy can be adjusted as appropriate to control his hypoglycemic episodes. Past Medical History Cardiac Medical History: Reports: Coronary Artery Disease, Myocardial Infarction - 1, Hyperlipidema, Hypertension Pulmonary Medical History: Reports: Chronic Obstructive Pulmonary Disease (COPD), Pneumonia EENT Medical History: Reports: None Neurological Medical History: Denies: Multiple Sclerosis, Seizures Endocrine Medical History: Reports: Diabetes Mellitus Type 2 Denies: Diabetes Mellitus Type 1, Hyperthyroidism, Hypothyroidism Renal/ Medical History: Denies: Chronic Kidney Disease, Nephrolithiasis Malignancy Medical History: Reports: Colorectal Cancer, Lung Cancer, Skin Cancer GI Medical History: Reports: Diverticulitis Denies: Cirrhosis, Crohn's Disease, Hepatitis Musculoskeltal Medical History: Reports: Arthritis Denies: Gout Skin Medical History: Denies: Eczema, Psoriasis Psychiatric Medical History: Reports: Depression, Tobacco Dependency Denies: Alcohol Dependency, Substance Abuse Traumatic Medical History: Reports: None Hematology: Denies: Anemia, Bleeding Tendencies Infectious Medical History: Reports: None Past Surgical History Past Surgical History: Reports: Appendectomy, Cardiac Catheterization, Carotid Endarterectomy - Right carotid endarterectomy, Coronary Stent - TOTAL OF 3 STENTS. Last one placed in December 2012., Orthopedic Surgery - right shoulder, left knee Social History Information Source: Patient Lives with: Spouse/Significant other Smoking Status: Former Smoker Frequency of Alcohol Use: None Hx Recreational Drug Use: No Drugs: None Hx Prescription Drug Abuse: No - Advance Directive Resuscitation Status: Full Code Surrogate healthcare decision maker:: Family History Family History: None Family History: Patient is adopted and is unaware of his natural family medical history. Parental Family History Reviewed: No Children Family History Reviewed: No Sibling(s) Family History Reviewed.: No Medication/Allergy Home Medications: Aspirin [Ecotrin 81 mg EC Tablet] 81 mg PO QPM 11/30/18 Atorvastatin Calcium [Lipitor 40 mg Tablet] 40 mg PO QHS 11/30/18 Cholecalciferol (Vitamin D3) [Vitamin D3 5000 unit Capsule] 5,000 unit PO DAILY 11/30/18 Cyanocobalamin (Vitamin B-12) [Vitamin B-12] 500 mcg SL QAM 11/30/18 Fluticasone Propionate [Flonase Nasal [place] 50 Mcg/[place] 16 gm] 1 spray NAREB DAILY 11/30/18 Insulin Glargine,Hum.rec.anlog [Lantus Insulin Inj 300 Unit/3 ml Pen] 25 unit SUBCUT QHS 11/30/18 Lisinopril [Prinivil 2.5 mg Tablet] 2.5 mg PO DAILY 11/30/18 Magnesium Oxide [Magnesium] 500 mg PO QAM 11/30/18 Metformin HCl [Glucophage 500 mg Tablet] 1,000 mg PO QAM 11/30/18 Metformin HCl [Glucophage] 500 mg PO QPM 11/30/18 Metoprolol Tartrate [Lopressor 50 mg Tablet] 100 mg PO Q12 11/30/18 Pyridoxine HCl [Vitamin B-6] 100 mg PO QAM 11/30/18 Sertraline HCl [Zoloft 50 mg Tablet] 100 mg PO DAILY 11/30/18 Tiotropium Br/Olodaterol HCl [Stiolto Respimat Inhal [place]] 2 puff IH QAM Allergies/Adverse Reactions: Iodinated Contrast- Oral and IV Dye Allergy (Intermediate, Verified 11/20/18 12:39) itching latex [Latex] Allergy (Verified 11/20/18 12:39) Review of Systems Constitutional: ABSENT: chills, fever(s), headache(s) Eyes: ABSENT: visual disturbances, other - Ocular pain Ears: ABSENT: hearing changes, other - Ear pain Nose, Mouth, and Throat: ABSENT: mouth pain, sore throat Cardiovascular: ABSENT: chest pain, dyspnea on exertion, edema, orthropnea, palpitations Respiratory: ABSENT: cough, dyspnea Gastrointestinal: ABSENT: abdominal pain, constipation, diarrhea, nausea, vomiting Genitourinary: PRESENT: other - Recent urinary tract infection. ABSENT: dysuria, hematuria Musculoskeletal: ABSENT: back pain, joint swelling Integumentary: ABSENT: pruritus, rash Neurological: PRESENT: as per HPI, abnormal gait - Leaning to the right, confusi on, lack of coordination - Leaning to the right. ABSENT: convulsions, memory loss, tremor(s) Psychiatric: ABSENT: anxiety, depression Endocrine: ABSENT: cold intolerance, heat intolerance Hematologic/Lymphatic: ABSENT: easy bleeding, easy bruising Physical Exam Vital Signs: Temp Pulse Resp BP Pulse Ox 98.5 F 70 13 113/97 H 93 11/30/18 19:02 11/30/18 19:02 11/30/18 21:01 11/30/18 21:01 11/30/18 21:01 Intake & Output 11/28/18 11/29/18 11/30/18 23:59 23:59 23:59 Weight 97.069 kg General appearance: PRESENT: no acute distress, cooperative Head exam: PRESENT: atraumatic, normocephalic Eye exam: PRESENT: conjunctiva pink, nystagmus - Marked horizontal nystagmus with fast component to the left. ABSENT: scleral icterus Ear exam: PRESENT: normal external ear exam. ABSENT: bleeding, drainage Mouth exam: PRESENT: dry mucosa, neck supple Neck exam: ABSENT: JVD, thyromegaly, tracheal deviation Respiratory exam: PRESENT: clear to auscultation anna, symmetrical, unlabored Cardiovascular exam: PRESENT: RRR. ABSENT: clicks, gallop, rubs Pulses: PRESENT: normal radial pulses, normal dorsalis pedis pul Vascular exam: PRESENT: normal capillary refill. ABSENT: pallor GI/Abdominal exam: PRESENT: normal bowel sounds, soft Rectal exam: PRESENT: deferred Extremities exam: ABSENT: joint swelling, pedal edema, tenderness Musculoskeletal exam: PRESENT: full ROM, normal inspection Neurological exam: PRESENT: alert, oriented to person, oriented to place, oriented to time, oriented to situation Psychiatric exam: PRESENT: appropriate affect, normal mood Skin exam: PRESENT: dry, intact, warm. ABSENT: jaundice, rash, urticaria Results Laboratory Results: 11/30/18 17:28 11/30/18 17:28 11/30/18 11/30/18 11/30/18 17:28 17:28 21:12 WBC 8.6 RBC 4.48 Hgb 14.6 Hct 43.1 MCV 96 MCH 32.6 MCHC 33.9 RDW 14.1 H Plt Count 245 Seg Neutrophils % 70.2 Lymphocytes % 13.9 Monocytes % 13.2 H Eosinophils % 2.1 Basophils % 0.6 Absolute Neutrophils 6.0 Absolute Lymphocytes 1.2 Absolute Monocytes 1.1 Absolute Eosinophils 0.2 Absolute Basophils 0.1 Sodium 140.3 Potassium 4.8 Chloride 103 Carbon Dioxide 24 Anion Gap 13 BUN 17 Creatinine 1.59 H Est GFR ( Amer) 52 L Est GFR (Non-Af Amer) 43 L Glucose 232 H Calcium 10.8 H Total Bilirubin 0.5 AST 65 H ALT 62 Alkaline Phosphatase 62 Total Protein 7.9 Albumin 4.8 Urine Color YELLOW Urine Appearance CLOUDY Urine pH 6.0 Ur Specific [place] 1.020 Urine Protein 100 H Urine Glucose (UA) 150 H Urine Ketones NEGATIVE Urine Blood SMALL H Urine Nitrite NEGATIVE Ur Leukocyte Esterase LARGE H Urine WBC (Auto) >182 Urine RBC (Auto) 62 11/30/18 11/30/18 17:28 17:28 Creatine Kinase 77 CK-MB (CK-2) 0.77 Troponin I < 0.012 Impressions: Chest X-Ray 11/30/18 19:19 IMPRESSION: NO ACUTE RADIOGRAPHIC FINDING IN THE CHEST. Head CT 11/30/18 19:20 IMPRESSION: CHRONIC CHANGES OF ATROPHY AND MICROVASCULAR ISCHEMIA. NO ACUTE PROCESS. EVIDENCE OF ACUTE STROKE: NO. Assessment & Plan - Diagnosis (1) Balance disorder Is this a current diagnosis for this admission?: Yes Plan: Patient will be treated with Transderm scopolamine patches applied every 72 hours. He will be observed for efficacy of therapy prior to disposition tomorrow if improved. Patient will have an MRI of the brain performed in the morning to evaluate for possible CVA as etiology of his balance disturbance. (2) Balance problem due to labyrinthine dysfunction Qualifiers: Laterality: unspecified laterality Qualified Code(s): H83.2X9 - Labyrinthine dysfunction, unspecified ear Is this a current diagnosis for this admission?: Yes Plan: Patient will be treated with Transderm scopolamine patches applied every 72 hours. He will be observed for efficacy of therapy prior to disposition tomorrow if improved. Patient will have an MRI of the brain performed in the mo rning to evaluate for possible CVA as etiology of his balance disturbance. (3) HLD (hyperlipidemia) Qualifiers: Hyperlipidemia type: unspecified Qualified Code(s): E78.5 - Hyperlipidemia, unspecified Is this a current diagnosis for this admission?: Yes Plan: Patient will be continued on his current therapy for hyperlipidemia. A lipid profile will be obtained in the morning to ascertain the efficacy of current therapy. (4) CAD (coronary artery disease) Qualifiers: Coronary Disease-Associated Artery/Lesion type: [place] artery [place] vs. transplanted heart: [place] heart Associated angina: angina presence unspecified Qualified Code(s): I25.10 - Atherosclerotic heart disease of [place] coronary artery without angina pectoris Is this a current diagnosis for this admission?: Yes Plan: Patient will be continued on his current cardiac regiment. Changes to medical regiment will be made only as medically indicated. (5) Diabetes mellitus type 2, controlled Qualifiers: Diabetes mellitus skilled nursing insulin use: with skilled nursing use Diabetes mellitus complication status: with hyperglycemia Qualified Code(s): E11.65 - Type 2 diabetes mellitus with hyperglycemia; Z79.4 - local [employer] truck driver (current) use of insulin Is this a current diagnosis for this admission?: Yes Plan: Patient will be continued on his current medications however his Lantus insulin will be increased to 30 units subcu at at bedtime. A hemoglobin A1c will be obtained in the morning to evaluate the efficacy of his current therapeutic regimen. - Time Time Spent: 30 to 50 Minutes Critical Time spent with patient: Less than 15 minutes Medications reviewed and adjusted accordingly: Yes Anticipated discharge: Home - Inpatient Certification Based on my medical assessment, after consideration of the patient's comorbidities, presenting symptoms, or acuity I expect that the services needed warrant INPATIENT care.: No I certify that my determination is in accordance with my understanding of Medicare's requirements for reasonable and necessary INPATIENT services [42 CFR 412.3e].: No Medical Necessity: Significant Comorbidiites Make Outpatient Treatment Too Risky, Need Close Monitoring Due to Risk of Patient Decompensation
[2018-12-01] MEDS: HEPARIN SOD (PORCINE) 5,000 UNIT/ML 1 ML SYRINGE SUBCUT SCH ×2 (06:05→15:33)
[2018-12-01 06:43] LABS: ABSOLUTE BASOPHILS # (AUTO) 0.1 10^3/uL (0.0-0.2); ABSOLUTE EOSINOPHILS # (AUTO) 0.2 10^3/uL (0.0-0.6); ABSOLUTE LYMPHOCYTES (AUTO) 0.9 10^3/uL (0.5-4.7); ABSOLUTE NEUT (AUTO) 4.8 10^3/uL (1.7-8.2); BASOPHILS % (AUTO) 0.7 % (0-2); EOSINOPHILS % (AUTO) 2.3 % (0-6); HEMATOCRIT 39.1 % (37.9-51.0); HEMOGLOBIN 13.5 g/dL (13.5-17.0); LYMPHOCYTES % (AUTO) 12.7 % (13-45); MEAN CORPUSCULAR HEMOGLOBIN 32.4 pg (27.0-33.4); MEAN CORPUSCULAR HGB CONC 34.5 g/dL (32.0-36.0); MEAN CORPUSCULAR VOLUME 94 fl (80-97); MONOCYTES % (AUTO) 13.9 % (3-13); PLATELET COUNT 190 10^3/uL (150-450); RED BLOOD COUNT 4.16 10^6/uL (4.35-5.55); RED CELL DISTRIBUTION WIDTH 14.1 % (11.5-14.0); SEGMENTED NEUTROPHILS % (AUTO) 70.4 % (42-78); TOTAL CELLS COUNTED % (AUTO) 100 %; WHITE BLOOD COUNT 6.8 10^3/uL (4.0-10.5)
[2018-12-01 07:15] LABS: ANION GAP 11 (5-19); BLOOD UREA NITROGEN 20 mg/dL (7-20); CALCIUM 10.2 mg/dL (8.4-10.2); CARBON DIOXIDE 21 mmol/L (22-30); CHLORIDE 105 mmol/L (98-107); CHOLESTEROL 88.44 mg/dL (0-200); GLUCOSE 353 mg/dL (75-110); POTASSIUM 4.7 mmol/L (3.6-5.0); SODIUM 137.4 mmol/L (137-145); TRIGLYCERIDES 174 mg/dL (<150)
[2018-12-01 07:28] LABS: DIRECT LDL 44 mg/dL (<100)
[2018-12-01 07:32] LABS: VLDL CHOLESTEROL 34.8 mg/dL (10-31)
[2018-12-01 08:00] LABS: FREE T3 3.81 pg/mL (2.77-5.27); FREE T4 (FREE THYROXINE) 1.06 ng/dL (0.78-2.19)
[2018-12-01] MEDS ORDERED: METFORMIN HCL 500 MG TABLET PO SCH ×2 (08:00→18:00)
[2018-12-01] MEDS ORDERED: CYANOCOBALAMIN (VITAMIN B-12) 1,000 MCG TABLET PO SCH (08:00)
[2018-12-01] MEDS ORDERED: MAGNESIUM OXIDE 400 MG TABLET PO SCH (08:00)
[2018-12-01] MEDS ORDERED: (PENDING PHARMACY ID) (Tiotropium Br/Olodaterol Hcl [Stiolto Respimat Inhal Spray] 2 PUFF) IH SCH (08:00)
[2018-12-01] MEDS ORDERED: PYRIDOXINE HCL 50 MG TABLET PO SCH (08:00)
--- NOTE | 2018-12-01 08:02 | EKG REPORT ---
SEVERITY:- BORDERLINE ECG - SINUS RHYTHM NONSPECIFIC ST-T CHANGES- INFERIOR LEADS : Confirmed by: Prieto Lofton MD 01-Dec-2018 08:02:06
[2018-12-01 08:14] LABS: THYROID STIMULATING HORMONE 3.18 uIU/mL (0.47-4.68)
[2018-12-01] MEDS ORDERED: LISINOPRIL 5 MG TABLET PO SCH (10:00)
[2018-12-01] MEDS ORDERED: FAMOTIDINE 20 MG TABLET PO SCH (10:00)
[2018-12-01] MEDS ORDERED: FLUTICASONE NASAL SPRAY 50 MCG/SPRY 120 SPRAY/16 GM NAREB SCH (10:00)
[2018-12-01] MEDS ORDERED: SERTRALINE HCL 50 MG TABLET PO SCH (10:00)
[2018-12-01] MEDS ORDERED: CHOLECALCIFEROL (D3) 1,000 UNIT TABLET PO SCH (10:00)
[2018-12-01] MEDS: CLOTRIMAZOLE/BETAMETHASONE DIP CREAM 15 GM TOP SCH ×2 (11:07→18:50)
[2018-12-01] MEDS ORDERED: FLUCONAZOLE 100 MG TABLET PO SCH ×2 (11:30→22:00)
--- NOTE | 2018-12-01 12:39 | RADIOLOGY REPORT (SQ) ---
EXAM DESCRIPTION: MRI HEAD WITHOUT COMPLETED DATE/TIME: 12/01/2018 12:20 pm REASON FOR STUDY: 3 day hx: leaning to right, intermittent confusion R31.9 HEMATURIA, UNSPECIFIED R 00.2 PALPITATIONS R73.9 HYPERGLYCEMIA, UNSPECIFIED COMPARISON: CT dated 11/30/2018. MR dated 04/08/2017. TECHNIQUE: Multiplanar imaging includes non-contrasted T1, T2, FLAIR, and diffusion with ADC map seq uences. Images stored on PACS. LIMITATIONS: None. FINDINGS: ANATOMY: No anomalies. Normal vascular flow voids. Pituitary fossa normal. CSF SPACES: Atrophy induced prominence of ventricles and CSF spaces. CEREBRUM: High signal intensity lesions scattered throughout the white matter on FLAIR imaging with d istribution suggesting micro-vascular ischemic changes. No evidence of hemorrhage, mass, or extraaxi al fluid collection. POSTERIOR FOSSA: No signal alteration. No hemorrhage. No edema, masses or mass effect. Internal santhosh tory canals, cerebello-pontine angles, mastoids normal. DIFFUSION IMAGING: Negative for acute or sub-acute infarction. ORBITS: No masses. Globes normal. PARANASAL SINUSES: No fluid levels. Mucosa normal. OTHER: No other significant finding. IMPRESSION: ATROPHY AND CHRONIC MICRO-VASCULAR ISCHEMIC CHANGES. OTHERWISE NORMAL MRI OF THE BRAIN W ITHOUT INTRAVENOUS GADOLINIUM CONTRAST. EVIDENCE OF ACUTE STROKE: NO. TECHNICAL DOCUMENTATION: JOB ID: [id number]- All Rights Reserved Reading location - IP/workstation name: [email or web address]
[2018-12-01] MEDS: DOCUSATE SODIUM 100 MG CAPSULE PO SCH ×2 (15:32→18:37)
[2018-12-01] MEDS ORDERED: MECLIZINE HCL 25 MG TABLET PO PRN (15:49)
[2018-12-01 16:08] VITALS: BP 121/89
[2018-12-01] MEDS ORDERED: ASPIRIN 81 MG TABLET, ENT COATED PO SCH (18:00)
--- NOTE | 2018-12-01 19:49 | PDOC DISCHARGE SUMMARY ---
General - Admit/Disc Date/PCP Admission Date/Primary Care Provider: 11/30/18 21:47 AISHWARYA VERMA MD Discharge Date: 12/01/18 - Discharge Diagnosis (1) Vertigo Is this a current diagnosis for this admission?: Yes Summary: Responded very well to meclizine, symptoms resolved in about an hour and he was able to walk upright without falling off to the side. (2) Izabel UTI Is this a current diagnosis for this admission?: Yes Summary: Her treating him with 14 days of fluconazole. - Additional Information Resuscitation Status: Do Not Resuscitate Discharge Diet: Cardiac, Diabetic Discharge Activity: Activity As Tolerated Prescriptions: Fluconazole [Diflucan 100 mg Tablet] 200 mg PO DAILY #14 tablet Home Medications: Aspirin [Ecotrin 81 mg EC Tablet] 81 mg PO QPM 11/30/18 Atorvastatin Calcium [Lipitor 40 mg Tablet] 40 mg PO QHS 11/30/18 Cholecalciferol (Vitamin D3) [Vitamin D3 5000 unit Capsule] 5,000 unit PO DAILY 11/30/18 Cyanocobalamin (Vitamin B-12) [Vitamin B-12] 500 mcg SL QA 11/30/18 Fluticasone Propionate [Flonase Nasal [place] 50 Mcg/[place] 16 gm] 1 spray NAREB DAILY 11/30/18 Insulin Glargine,Hum.rec.anlog [Lantus Insulin 100 Unit/mL] 25 unit SUBCUT QHS 11/30/18 Lisinopril [Prinivil 2.5 mg Tablet] 2.5 mg PO DAILY 11/30/18 Magnesium Oxide [Magnesium] 500 mg PO [facility] 11/30/18 Metformin HCl [Glucophage 500 mg Tablet] 1,000 mg PO [facility] 11/30/18 Metformin HCl [Glucophage] 500 mg PO QPM 11/30/18 Metoprolol Tartrate [Lopressor 50 mg Tablet] 100 mg PO Q12 11/30/18 Pyridoxine HCl [Vitamin B-6] 100 mg PO QAM 11/30/18 Sertraline HCl [Zoloft 50 mg Tablet] 100 mg PO DAILY 11/30/18 Tiotropium Br/Olodaterol HCl [Stiolto Respimat Inhal [place]] 2 puff IH QA 11/30/18 Fluconazole [Diflucan 100 mg Tablet] 200 mg PO DAILY #14 tablet 12/01/18 Meclizine HCl [Antivert 25 mg Tablet] 25 mg PO Q8HP PRN tablet 12/01/18 History of Present Illness History of Present Illness: BIRD LOCKWOOD is a 73 year old male who presents to the emergency room with a 3- day history of difficulty with his balance causing him to lean and (nearly) fall to the right. He and his admit that he has been having essentially continuous difficulty with his balance over the last 3 days that has been accompanied by intermittent confusion and episodes of hyperglycemia. He has been noted by his to actually allow the car to drift to the right as he seems to be leaning to the right when driving. In the emergency room he was found to have a normal CT scan of the head without contrast and mild to moderate hyperglycemia. Because of his symptoms it was felt that he should be admitted to observation status and a MRI of the head obtained during his observation course. Additionally efforts at correcting his balance disturbance can be initiated and evaluated. His diabetes therapy can be adjusted as appropriate to control his hypoglycemic episodes. Hospital Course Hospital Course: He had Izabel grew out of his urine culture and so he is going to be treated with 14 days of fluconazole. He gave a history of having a sensation of the room spinning, and only being able to get comfortable when he laid with his head in a certain position. Whenever he sat up the room would spin and he would feel like he was falling off to the right. It got worse whenever he stood, and laying down and laying with his head tilted slightly to the left with the head of the bed up at about 25-30 degrees seem to make him feel better. He did not have any tinnitus or hearing loss. MRI of his head was negative. I gave him a dose of meclizine and he responded very well. He was able to walk down the hallway without the sensation of the room spinning or feeling like he was going to fall. He will be able to take that on an as-needed basis. His labs and examination were reassuring and he was discharged in good condition. Physical Exam Vital Signs: Temp Pulse Resp BP Pulse Ox 98.9 F 75 18 121/89 H 98 12/01/18 14:00 12/01/18 14:00 12/01/18 14:00 12/01/18 14:00 12/01/18 14:00 Intake & Output 11/30/18 12/01/18 12/02/18 06:59 06:59 06:59 Weight 98.1 kg General appearance: PRESENT: no acute distress, cooperative, disheveled Respiratory exam: PRESENT: decreased breath sounds, symmetrical, unlabored. ABSENT: accessory muscle use, prolonged expiratory phas, rales, rhonchi, tachypnea, wheezes Cardiovascular exam: PRESENT: RRR, +S1, +S2 Vascular exam: PRESENT: normal capillary refill GI/Abdominal exam: PRESENT: normal bowel sounds, soft. ABSENT: distended, guarding, rebound, tenderness Extremities exam: ABSENT: clubbing, pedal edema Musculoskeletal exam: PRESENT: normal inspection. ABSENT: deformity Neurological exam: PRESENT: alert, awake, oriented to person, oriented to place, oriented to time, oriented to situation, CN II-XII grossly intact. ABSENT: motor sensory deficit Psychiatric exam: PRESENT: appropriate affect, normal mood Skin exam: PRESENT: dry, warm Results Laboratory Results: 12/01/18 06:35 12/01/18 06:35 11/30/18 11/30/18 12/01/18 17:28 21:12 06:35 WBC 6.8 RBC 4.16 L Hgb 13.5 Hct 39.1 MCV 94 MCH 32.4 MCHC 34.5 RDW 14.1 H Plt Count 190 Seg Neutrophils % 70.4 Lymphocytes % 12.7 L Monocytes % 13.9 H Eosinophils % 2.3 Basophils % 0.7 Absolute Neutrophils 4.8 Absolute Lymphocytes 0.9 Absolute Monocytes 1.0 Absolute Eosinophils 0.2 Absolute Basophils 0.1 Sodium 140.3 Potassium 4.8 Chloride 103 Carbon Dioxide 24 Anion Gap 13 BUN 17 Creatinine 1.59 H Est GFR ( Amer) 52 L Est GFR (Non-Af Amer) 43 L Glucose 232 H Calcium 10.8 H Magnesium Total Bilirubin 0.5 AST 65 H ALT 62 Alkaline Phosphatase 62 Total Protein 7.9 Albumin 4.8 Triglycerides Cholesterol LDL Cholesterol Direct VLDL Cholesterol HDL Cholesterol TSH Free T4 Free T3 pg/mL Urine Color YELLOW Urine Appearance CLOUDY Urine pH 6.0 Ur Specific [place] 1.020 Urine Protein 100 H Urine Glucose (UA) 150 H Urine Ketones NEGATIVE Urine Blood SMALL H Urine Nitrite NEGATIVE Ur Leukocyte Esterase LARGE H Urine WBC (Auto) >182 Urine RBC (Auto) 62 12/01/18 12/01/18 06:35 06:35 WBC RBC Hgb Hct MCV MCH MCHC RDW Plt Count Seg Neutrophils % Lymphocytes % Monocytes % Eosinophils % Basophils % Absolute Neutrophils Absolute Lymphocytes Absolute Monocytes Absolute Eosinophils Absolute Basophils Sodium 137.4 Potassium 4.7 Chloride 105 Carbon Dioxide 21 L Anion Gap 11 BUN 20 Creatinine 1.53 H Est GFR ( Amer) 54 L Est GFR (Non-Af Amer) 45 L Glucose 353 H Calcium 10.2 Magnesium 1.9 Total Bilirubin AST ALT Alkaline Phosphatase Total Protein Albumin Triglycerides 174 H Cholesterol 88.44 LDL Cholesterol Direct 44 VLDL Cholesterol 34.8 H HDL Cholesterol 32 L TSH 3.18 Free T4 1.06 Free T3 pg/mL 3.81 Urine Color Urine Appearance Urine pH Ur Specific [place] Urine Protein Urine Glucose (UA) Urine Ketones Urine Blood Urine Nitrite Ur Leukocyte Esterase Urine WBC (Auto) Urine RBC (Auto) 11/30/18 11/30/18 11/30/18 17:28 17:28 23:15 Creatine Kinase 77 CK-MB (CK-2) 0.77 Troponin I < 0.012 < 0.012 Impressions: Head MRI 11/30/18 00:00 IMPRESSION: ATROPHY AND CHRONIC MICRO-VASCULAR ISCHEMIC CHANGES. OTHERWISE NORMAL MRI OF THE BRAIN WITHOUT INTRAVENOUS GADOLINIUM CONTRAST. EVIDENCE OF ACUTE STROKE: NO. Chest X-Ray 11/30/18 19:19 IMPRESSION: NO ACUTE RADIOGRAPHIC FINDING IN THE CHEST. Head CT 11/30/18 19:20 IMPRESSION: CHRONIC CHANGES OF ATROPHY AND MICROVASCULAR ISCHEMIA. NO ACUTE PROCESS. EVIDENCE OF ACUTE STROKE: NO. Qualifiers - * PATIENT BEING DISCHARGED WITH ANY OF THE FOLLOWING DIAGNOSIS: No
[2018-12-01] MEDS ORDERED: METOPROLOL TARTRATE 50 MG TABLET PO SCH (22:00)
[2018-12-01] MEDS ORDERED: INSULIN GLARGINE,HUM.REC.ANLOG 300 UNIT/3 ML INSULN.PEN SUBCUT SCH (22:00)
[2018-12-01] MEDS ORDERED: ATORVASTATIN CALCIUM 40 MG TABLET PO SCH (22:00)
== END 2018-12-01 19:32 | disposition home or self-care (01) ==
LOC: ER 17:01 → EH 21:47 → 5 12-01 03:07
PROVIDERS: ADMIT Emergency Medicine; ATTEND Emergency Medicine
DX: R42 Dizziness and giddiness (principal); B37.49 Other urogenital candidiasis; E11.65 Type 2 diabetes mellitus with hyperglycemia; R41.0 Disorientation, unspecified; R26.89 Other abnormalities of gait and mobility; H83.2X9 Labyrinthine dysfunction, unspecified ear; E78.5 Hyperlipidemia, unspecified; I25.10 Atherosclerotic heart disease of native coronary artery without angina pectoris; N48.1 Balanitis; J44.9 Chronic obstructive pulmonary disease, unspecified; I25.2 Old myocardial infarction; Z66 Do not resuscitate; Z79.82 Long term (current) use of aspirin; Z79.899 Other long term (current) drug therapy; Z79.4 Long term (current) use of insulin; Z85.038 Personal history of other malignant neoplasm of large intestine; Z85.118 Personal history of other malignant neoplasm of bronchus and lung; Z85.828 Personal history of other malignant neoplasm of skin; Z90.49 Acquired absence of other specified parts of digestive tract; Z95.5 Presence of coronary angioplasty implant and graft; Z87.891 Personal history of nicotine dependence; Z87.440 Personal history of urinary (tract) infections; Z86.73 Personal history of transient ischemic attack (TIA), and cerebral infarction without residual deficits; Z96.0 Presence of urogenital implants
CPT/HCPCS: 93005; 99285; 36415 ×2; 87086; 84439; 82553; 82962 ×2; 82550; 83735; 84443; 85025 ×2; 80048; 80053; 81001; 84484; 80307; 84481; 83036; 80061; 70551; 71045; 70450; 93010; 97116; 97163; 97167; G0378 ×3; J1644; A9270 ×5; J3490; J1815

== ENCOUNTER → 2019-01-08 | Outpatient (CLI) | payer MEDICARE, BC ==
--- NOTE | 2019-01-08 09:01 | RADIOLOGY REPORT (SQ) ---
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 Images reviewed with lung, soft tissue and bone windows. Reconstructed coronal and sagittal MPR images reviewed. All images st ored on PACS. All CT scanners at this facility use dose modulation, iterative reconstruction, and/or weight based d osing when appropriate to reduce radiation dose to as low as reasonably achievable (ALARA). [facility]: Dose Right [facility]: CareDose [facility]: Dose Right [facility]: Teradose 4D [facility]: [employer] RADIATION DOSE: CT Rad equipment meets quality standard of care and radiation dose reduction techniq ues were employed. CTDIvol: 16.0 mGy. DLP: 599 mGy-cm. mGy. LIMITATIONS: No technical limitations. FINDINGS: LUNGS AND PLEURA: Status post right lower lobectomy. Stable areas of bandlike scarring. No developing nodules. Stable emphysematous changes in the upper lobes. No fibrosis. No effusions. HILAR AND MEDIASTINAL STRUCTURES: No identified masses or abnormal nodes. No obvious aneurysm. HEART AND VASCULAR STRUCTURES: No aneurysm. No pericardial effusion. UPPER ABDOMEN: No significant findings. Limited exam. THYROID AND OTHER SOFT TISSUES: No masses. No adenopathy. BONES: Nothing acute. HARDWARE: None in the chest. OTHER: No other significant findings. IMPRESSION: Stable chest. No evidence of local recurrence or metastatic disease. TECHNICAL DOCUMENTATION: JOB ID: [id number] Quality ID # [id number]: Final reports with documentation of one or more dose reduction techniques (e.g., Au tomated exposure control, adjustment of the mA and/or kV according to patient size, use of iterative reconstruction technique) 2010 [employer]- All Rights Reserved Reading location - IP/workstation name: [email or web address]
== END ==
LOC: RAD 08:30
PROVIDERS: ATTEND Physician Assistant Medical
DX: C34.31 Malignant neoplasm of lower lobe, right bronchus or lung (principal)
CPT/HCPCS: 71250

== ENCOUNTER → 2019-05-07 | Outpatient (CLI) | payer MEDICARE, BC ==
--- NOTE | 2019-05-07 11:37 | RADIOLOGY REPORT (SQ) ---
EXAM DESCRIPTION: CT CHEST WITHOUT COMPLETED DATE/TIME: 05/07/2019 9:23 am REASON FOR STUDY: C34.31 MALIGNANT NEOPLASM OF LOWER LOBE, RIGHT BRONCHUS OR LUNG C34.31 MALIGNANT NEOPLASM OF LOWER LOBE, RIGHT BRONCHUS OR L COMPARISON: PET-CT 03/27/2017 CT chest 10/25/2017, 01/16/2018, 04/25/2018, 08/31/2018, 01/08/2019 TECHNIQUE: CT scan performed of the chest without intravenous contrast. Images reviewed with lung, soft tissue and bone windows. Reconstructed coronal and sagittal MPR images reviewed. All images st ored on PACS. All CT scanners at this facility use dose modulation, iterative reconstruction, and/or weight based d osing when appropriate to reduce radiation dose to as low as reasonably achievable (ALARA). [facility]: Dose Right [facility]: CareDose [facility]: Dose Right [facility]: Teradose 4D [facility]: Fredio RADIATION DOSE: CT Rad equipment meets quality standard of care and radiation dose reduction techniq ues were employed. CTDIvol: 15.2 mGy. DLP: 531 mGy-cm. mGy. LIMITATIONS: No technical limitations. FINDINGS: LUNGS AND PLEURA: Old wedge resections andrew are seen along the posterior aspect right u pper lobe and right lower lobe. Lungs exhibit mild changes of obstructive disease. No acute infiltr ates. No pleural effusion. No pneumothorax. No worrisome pulmonary nodules. Airways are patent. HILAR AND MEDIASTINAL STRUCTURES: No identified masses or abnormal nodes. No obvious aneurysm. HEART AND VASCULAR STRUCTURES: No aneurysm. No pericardial effusion. Calcified coronary arteries UPPER ABDOMEN: No significant findings. Limited exam. THYROID AND OTHER SOFT TISSUES: No masses. No adenopathy. BONES: No significant finding. HARDWARE: None in the chest. OTHER: No other significant findings. IMPRESSION: Stable chest. No CT evidence of local recurrence or metastatic disease given history of lung cancer TECHNICAL DOCUMENTATION: JOB ID: [id number] Quality ID # [id number]: Final reports with documentation of one or more dose reduction techniques (e.g., Au tomated exposure control, adjustment of the mA and/or kV according to patient size, use of iterative reconstruction technique) 2010 [email or web address]- All Rights Reserved Reading location - IP/workstation name: [email or web address]
== END ==
LOC: RAD 08:55
PROVIDERS: ATTEND Physician Assistant Medical
DX: C34.31 Malignant neoplasm of lower lobe, right bronchus or lung (principal)
CPT/HCPCS: 71250

== ENCOUNTER → 2019-06-18 | Outpatient (CLI) | payer MEDICARE, BC ==
--- NOTE | 2019-06-19 15:29 | RADIOLOGY REPORT (SQ) ---
EXAM DESCRIPTION: MRI ABDOMEN COMBO COMPLETED DATE/TIME: 06/18/2019 8:40 am REASON FOR STUDY: OTHER SPECIFIED DISEASES OF PANCREAS (K86.89) K86.89 OTHER SPECIFIED DISEASES OF PANCREAS COMPARISON: None. TECHNIQUE: Multiplanar multisequence imaging performed without and with contrast including sagittal, axial and coronal T2, axial T1, axial gradient fat sat T1, axial, sagittal and coronal fat sat T1 po st contrast. CONTRAST TYPE AND DOSE: 20 mL Dotarem. RENAL FUNCTION: GFR > 60. LIMITATIONS: None. FINDINGS: LIVER: Normal size. No masses. No dilated ducts. CBD normal. SPLEEN: Normal size. No focal lesions. PANCREAS: Again seen is dilation of the main pancreatic duct measuring up to 6 mm at the level of the pancreatic body. There is focal caliber change at the level of the pancreatic head. Relative area of hypoenhancement within the pancreatic head measuring 2.4 x 2.1 cm (series 100, image 56). No evid ence of extra pancreatic extension. No involvement with the celiac axis or SMA. No evidence of eric pancreatic inflammation or fluid. GALLBLADDER: No masses. No stones. No gallbladder wall thickening or pericholecystic fluid. ADRENAL GLANDS: Unchanged left adrenal gland hyperplasia with limb thickening measuring up to 12 mm. No discrete nodule. RIGHT KIDNEY AND URETER: No masses. No hydronephrosis. Scattered simple renal cysts. LEFT KIDNEY AND URETER: No masses. No hydronephrosis. Scattered simple cysts. AORTA AND VESSELS: No aneurysm. No dissection. Renal arteries, SMA, celiac without stenosis. RETROPERITONEUM: No retroperitoneal adenopathy, hemorrhage or masses. BOWEL: No visualized masses. No inflammation. No significant dilatation. ABDOMINAL WALL AND PERITONEUM: No hernias. No free fluid. BONES: No acute or significant findings. OTHER: No other significant finding. IMPRESSION: Dilation of the main pancreatic duct measuring up to 6 mm at the level of the pancreatic body. Focal caliber change at the level of the pancreatic head with relative area of hypoenhancemen t measuring up to 2.4 cm suspicious for pancreatic head lesion. No definitive extra pancreatic, chace ac or SMA involvement. No lymphadenopathy. Endoscopic ultrasound recommended for further evaluation . Findings were discussed with Dr. Vincent At 1522 hours on 06/19/2019 TECHNICAL DOCUMENTATION: JOB ID: [id number]- All Rights Reserved Reading location - IP/workstation name: [email or web address]
== END ==
LOC: RAD 07:00
PROVIDERS: ATTEND Internal Medicine
DX: K86.89 Other specified diseases of pancreas (principal)
CPT/HCPCS: 82565; 74183; A9576

== ENCOUNTER → 2019-07-15 | Outpatient (CLI) | payer MEDICARE, BC ==
--- NOTE | 2019-07-16 10:11 | RADIOLOGY REPORT (SQ) ---
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 TECHNIQUE: Blood glucose level was verified. Above dose of FDG was injected intravenously. 2-D seg mented attenuation correction images were obtained from the base of the skull to the midthighs. Nonc ontrast CT images were obtained for attenuation correction and fusion with emission images. CT image s were performed without oral or intravenous contrast and are not sensitive for parenchymal lesions. A series of overlapping emission PET images were obtained. Images reviewed and manipulated at [facility] by the radiologist. Images stored on PACS. LIMITATIONS: None. FINDINGS: HEAD AND NECK: No areas of abnormal metabolic activity in the soft tissues of the head and neck. CHEST: Post right lower lobectomy. There is no metabolic activity or soft tissue nodule worrisome fo r recurrent lung cancer. No mediastinal adenopathy. ABDOMEN AND PELVIS: A ill-defined 3 x 2 cm mass is present along the anterior pancreatic head on axia l image 138/303. This has SUV of 4.4, and is worrisome for primary malignancy. Remainder the pancre as is atrophic with a mildly prominent pancreatic duct. No upper abdominal adenopathy. PROXIMAL LOWER EXTREMITIES: No areas of abnormal metabolic activity in the soft tissues of the lower extremities. BONES: No abnormal metabolic activity in the visualized skeleton. ADDITIONAL CT FINDINGS: Non metabolic 2 cm left adrenal nodule. Old right hemicolectomy. Cardiomega ly with coronary artery disease. Less than 5 mm left lower pole intrarenal nonobstructive calculus. OTHER: Liver background activity 2.6 SUV. Blood pool background activity 1.6 SUV IMPRESSION: 3 x 2 cm anterior pancreatic head mass worrisome for malignancy. No upper abdominal caleb nopathy. Post right lower lobectomy, right hemicolectomy. TECHNICAL DOCUMENTATION: JOB ID: [id number]- All Rights Reserved Reading location - IP/workstation name: [email or web address]
== END ==
LOC: RAD 18:39
PROVIDERS: ATTEND Internal Medicine
DX: C25.0 Malignant neoplasm of head of pancreas (principal)
CPT/HCPCS: 78815; A9552

== ENCOUNTER → 2019-12-04 | Outpatient (CLI) | payer MEDICARE, BC ==
--- NOTE | 2019-12-04 15:56 | RADIOLOGY REPORT (SQ) ---
EXAM DESCRIPTION: CT CHEST WITHOUT; CT ABD/PELVIS NO ORAL OR IV COMPLETED DATE/TIME: 12/04/2019 9:29 am; 12/04/2019 9:28 am REASON FOR STUDY: MALIGNANT NEOPLASM OF HEAD OF PANCREAS C25.0 MALIGNANT NEOPLASM OF HEAD OF PANCRE COMPARISON: PET-CT 03/27/2017, 07/15/2019 CT chest 05/07/2019, 09/03/2019 CT abdomen pelvis 11/20/2018 MRI abdomen 06/18/2019 TECHNIQUE: CT scan of the chest performed without intravenous contrast using helical scanning techni que. Images reviewed with lung, soft tissue and bone windows. Reconstructed coronal and sagittal MPR images reviewed. All images stored on PACS. CT scan of the abdomen and pelvis performed without intravenous contrast and withoutoral contrast usi ng helical scanning technique with dynamic intravenous contrast injection. Images reviewed with lung , soft tissue and bone windows. Reconstructed coronal and sagittal MPR images reviewed. All images stored on PACS. All CT scanners at this facility use dose modulation, iterative reconstruction, and/or weight based d osing when appropriate to reduce radiation dose to as low as reasonably achievable (ALARA). [facility]: Dose Right [facility]: CareDose [facility]: Dose Right [facility]: Teradose 4D [facility]: [employer] RADIATION DOSE: CT Rad equipment meets quality standard of care and radiation dose reduction techniq ues were employed. CTDIvol: 11.8 - 13.4 mGy. DLP: 1177 mGy-cm. mGy. LIMITATIONS: No technical limitations. FINDINGS: CHEST: AXILLAE: No adenopathy. CHEST WALL: No masses. No subcutaneous air. LUNGS: No nodules or masses. No pneumothorax. No infiltrates. Patient is post right lower lobectomy. Lungs are hyperinflated and hyperlucent from obstructive lung disease. PLEURA: No effusions. No calcifications. THYROID: No masses or significant asymmetry. HILAR AND MEDIASTINAL STRUCTURES: No identified masses or abnormal nodes. AORTA AND GREAT VESSELS: No aneurysm. HEART: No pericardial effusion. Radiodense coronary arteries from calcification and stents HARDWARE AND LIFELINES: None. BONES: No significant finding. OTHER: No other significant finding. ABDOMEN AND PELVIS: LIVER: Normal size. No masses. No dilated ducts. Diffusely hypodense from fatty infiltration SPLEEN: Normal size. No focal lesions. PANCREAS: Post Whipple procedure with resection of the pancreatic head, gallbladder, distal stomach/ pylorus/ duodenum. Pancreatic tail is unremarkable. No recurrent adenopathy or masses along the ope rative site GALLBLADDER: Surgically absent ADRENAL GLANDS: No significant masses or asymmetry. RIGHT KIDNEY AND URETER: No solid masses. Assessment limited by lack of IV contrast. 2 mm right lowe r pole intrarenal nonobstructive calcification. No hydronephrosis or hydroureter. LEFT KIDNEY AND URETER: No solid masses. Assessment limited by lack of IV contrast. 1 cm left lower pole renal cortical cyst. 2 cm left midpole renal cortical cyst. 5 mm left lower pole intrarenal no nobstructive calcification. No hydronephrosis or hydroureter. AORTA AND VESSELS: Infrarenal abdominal aorta 3 cm in diameter, stable RETROPERITONEUM: No retroperitoneal adenopathy, hemorrhage or masses. APPENDIX: Surgically absent LARGE AND SMALL BOWEL: Post right hemicolectomy. Post Whipple procedure with pancreatic -enteric tico stomosis and partial gastrectomy/duodenectomy. No CT evidence of free intraperitoneal air or fluid o r CT signs of bowel obstruction. Stomach decompressed. ABDOMINAL WALL: No hernia or masses. PERITONEAL CAVITY: No free air. No free fluid. No peritoneal implants or masses. PELVIS: Enlarged prostate. 5 mm calcification in the dependent portion of the left urinary bladder, could represent a bladder stone or recently passed ureteral stone. BONES: Multilevel degenerative disc changes lumbar spine OTHER: No other significant finding. IMPRESSION: Post right lower lobectomy and Whipple procedure No CT evidence of metastatic disease to the chest abdomen or pelvis TECHNICAL DOCUMENTATION: JOB ID: [id number] Quality ID # 436: Final reports with documentation of one or more dose reduction techniques (e.g., Au tomated exposure control, adjustment of the mA and/or kV according to patient size, use of iterative reconstruction technique) 2010 [employer]- All Rights Reserved Reading location - IP/workstation name: [email or web address] VISUAL [email or web address]
== END ==
LOC: RAD 09:07
PROVIDERS: ATTEND Internal Medicine
DX: C25.0 Malignant neoplasm of head of pancreas (principal)
CPT/HCPCS: 71250; 74176

== ENCOUNTER → 2020-04-01 | Outpatient (CLI) | payer MEDICARE, BC ==
--- NOTE | 2020-04-01 10:12 | RADIOLOGY REPORT (SQ) ---
EXAM DESCRIPTION: CT CHEST WITHOUT IMAGES COMPLETED DATE/TIME: 04/01/2020 9:23 am REASON FOR STUDY: (C34.31)MALIGNANT NEOPLASM OF LOWER LOBE, RIGHT BRONCHUS OR LUNG C25.0 MALIGNANT NEOPLASM OF HEAD OF PANCREAS C34.31 MALIGNANT NEOPLASM OF LOWER LOBE, RIGHT BRONCHUS OR L COMPARISON: 12/04/2019 TECHNIQUE: CT scan of the chest performed without intravenous contrast using helical scanning techni que. Images reviewed with lung, soft tissue and bone windows. Reconstructed coronal and sagittal MPR images reviewed. All images stored on PACS. All CT scanners at this facility use dose modulation, iterative reconstruction, and/or weight based d osing when appropriate to reduce radiation dose to as low as reasonably achievable (ALARA). [facility]: Dose Right [facility]: CareDose [facility]: Dose Right [facility]: [employer] 4D [facility]: [employer] RADIATION DOSE: mGy. LIMITATIONS: None. FINDINGS: AXILLAE: No adenopathy. CHEST WALL: No masses. No subcutaneous air. LUNGS: Centrilobular emphysema. Scarring in the right medial base. Volume loss on the right consist ent with prior procedure. PLEURA: No effusions. No calcifications. THYROID: No masses or significant asymmetry. HILAR AND MEDIASTINAL STRUCTURES: No identified masses or abnormal nodes. AORTA AND GREAT VESSELS: No aneurysm. HEART: No pericardial effusion. HARDWARE AND LIFELINES: None. BONES: No significant finding. OTHER: No other significant finding. IMPRESSION: No evidence of metastatic disease in the chest. Scarring on the right consistent with p rior procedure. Centrilobular emphysema. COMPARISON: None. TECHNIQUE: CT scan of the abdomen and pelvis performed without intravenous contrast and withoutoral contrast using helical scanning technique with dynamic intravenous contrast injection. Images review ed with lung, soft tissue and bone windows. Reconstructed coronal and sagittal MPR images reviewed. All images stored on PACS. All CT scanners at this facility use dose modulation, iterative reconstruction, and/or weight based d osing when appropriate to reduce radiation dose to as low as reasonably achievable (ALARA). [facility]: Dose Right [facility]: [employer] [facility]: Dose Right [facility]: Parallel [employer] 4D [facility]: Smart [employer] RADIATION DOSE: mGy. LIMITATIONS: None. FINDINGS: LIVER: Normal size. No masses. No dilated ducts. SPLEEN: Normal size. No focal lesions. PANCREAS: Prior Whipple procedure. No focal masses. No inflammatory changes. GALLBLADDER: No identified stones by CT criteria. No inflammatory changes to suggest cholecystitis. ADRENAL GLANDS: No significant masses or asymmetry. RIGHT KIDNEY AND URETER: No solid masses. Assessment limited by lack of IV contrast. No significant c alcification. No hydronephrosis or hydroureter. LEFT KIDNEY AND URETER: No solid masses. Assessment limited by lack of IV contrast. No significant ca lcification. No hydronephrosis or hydroureter. AORTA AND VESSELS: Stable in appearance with aneurysmal dilatation of the distal aorta. Largest diam eter is 3.0 x 2.9 cm. Stable mild dilatation of the common iliac arteries as well. RETROPERITONEUM: No retroperitoneal adenopathy, hemorrhage or masses. APPENDIX: Surgically absent. LARGE AND SMALL BOWEL: No obstruction. No inflammatory changes. Prior partial colectomy. ABDOMINAL WALL: No hernia or masses. PERITONEAL CAVITY: No free air. No free fluid. No peritoneal implants or masses. PELVIS: No mass or free fluid. Normal bladder. BONES: Degenerative changes in the lumbar spine most marked at L3-L4, L4-L5 and L5-S1. OTHER: No other significant finding. IMPRESSION: 1. No evidence metastatic disease in the abdomen or pelvis. Postsurgical changes. 2. 3.0 x 2.9 cm infrarenal abdominal aortic aneurysm. Stable mild dilatation of the common iliac ar teries as well. Please see below for recommended follow-up. COMMENT: AAA Size: Follow-up Recommendation 3.0-3.4 cm Every 3 years *Based upon the Society for Vascular Surgery Guidelines: J Vasc Surg. 2009 Aug;50(4 Suppl):S2-49 *For aortas of maximum diameter of 2.6-2.9 cm meeting the criteria for AAA (?1.5 x proximal normal se gment) TECHNICAL DOCUMENTATION: JOB ID: [id number] Quality ID # [id number]: Final reports with documentation of one or more dose reduction techniques (e.g., Au tomated exposure control, adjustment of the mA and/or kV according to patient size, use of iterative reconstruction technique) 2010 [employer]- All Rights Reserved Reading location - IP/workstation name: [email or web address]
--- NOTE | 2020-04-01 10:20 | RADIOLOGY REPORT (SQ) ---
EXAM DESCRIPTION: CT ABD/PELVIS NO ORAL OR IV COMPLETE DATE/TIME: 04/01/2020 9:23 am REASON FOR STUDY: (C34.31)MALIGNANT NEOPLASM OF LOWER LOBE, RIGHT BRONCHUS OR LUNG C25.0 MALIGNANT NEOPLASM OF HEAD OF PANCREAS C34.31 MALIGNANT NEOPLASM OF LOWER LOBE, RIGHT BRONCHUS OR L FINDINGS: Please see combined report for performance of procedure and radiologic supervision and int erpretation. IMPRESSION: Please see combined report for performance of procedure and radiologic supervision and i nterpretation. Reading location - IP/workstation name: [email or web address]
== END ==
LOC: RAD 09:07
PROVIDERS: ATTEND Internal Medicine
DX: C25.0 Malignant neoplasm of head of pancreas (principal); C34.31 Malignant neoplasm of lower lobe, right bronchus or lung
CPT/HCPCS: 71250; 74176

== ENCOUNTER 2020-05-09 11:18 | Inpatient (IN) | payer MEDICARE, BC ==
[2020-05-09] MEDS ORDERED: NORMAL SALINE 1000 ML 750 ML IV ONE ×2 (11:40→12:00)
[2020-05-09 11:41] LABS: ABSOLUTE EOSINOPHILS # (AUTO) 0.1 10^3/uL (0.0-0.6); ABSOLUTE LYMPHOCYTES (AUTO) 0.6 10^3/uL (0.5-4.7); ABSOLUTE MONOCYTES (AUTO) 0.5 10^3/uL (0.1-1.4); ABSOLUTE NEUT (AUTO) 3.9 10^3/uL (1.7-8.2); BASOPHILS % (AUTO) 0.7 % (0-2); EOSINOPHILS % (AUTO) 2.4 % (0-6); HEMATOCRIT 30.9 % (37.9-51.0); MEAN CORPUSCULAR HEMOGLOBIN 27.9 pg (27.0-33.4); MEAN CORPUSCULAR HGB CONC 32.2 g/dL (32.0-36.0); MEAN CORPUSCULAR VOLUME 87 fl (80-97); MONOCYTES % (AUTO) 10.6 % (3-13); PLATELET COUNT 228 10^3/uL (150-450); RED BLOOD COUNT 3.57 10^6/uL (4.35-5.55); RED CELL DISTRIBUTION WIDTH 16.4 % (11.5-14.0); SEGMENTED NEUTROPHILS % (AUTO) 75.3 % (42-78); TOTAL CELLS COUNTED % (AUTO) 100 %; WHITE BLOOD COUNT 5.2 10^3/uL (4.0-10.5)
[2020-05-09 11:47] LABS: AMORPHOUS SEDIMENT,URINE TRACE /HPF; APPEARANCE,URINE SLIGHTLY-CLOUDY; BILIRUBIN,URINE NEGATIVE (NEGATIVE); COLOR,URINE YELLOW; GLUCOSE, URINE 50 mg/dL (NEGATIVE); KETONES,URINE NEGATIVE (NEGATIVE); LEUKOCYTE ESTERASE,URINE LARGE (NEGATIVE); NITRITE,URINE NEGATIVE (NEGATIVE); PROTEIN,URINE NEGATIVE (NEGATIVE); URINE SPECIFIC GRAVITY 1.012; UROBILINOGEN,URINE NEGATIVE mg/dL (<2.0)
--- NOTE | 2020-05-09 11:49 | ER Document Report ---
ED Dizziness/Weakness - General Chief Complaint: Near Syncope Stated Complaint: BLOOD PRESSURE ISSUES Time Seen by Provider: 05/09/20 11:32 Mode of Arrival: Medic Information source: Patient Notes: 74-year-old man presents to the emergency department with a history of working outside in the garden today when he became dizzy and lightheaded. States that he had difficult time getting back into the house. Apparently was noted to have low blood pressure. He is on blood pressure medications. He is status post a Whipple procedure 6 months ago, dates that he has had iron infusion on 2 separ ate occasions because of low H&H. He apparently is being worked up by his primary care doctor and oncologist for possible GI bleeding. TRAVEL OUTSIDE OF THE [place] IN LAST 30 DAYS: No - Related Data Allergies/Adverse Reactions: Iodinated Contrast Media Allergy (Intermediate, Verified 11/20/18 12:39) itching latex [Latex] Allergy (Verified 11/20/18 12:39) Past Medical History - Social History Smoking Status: Former Smoker Family History: None, Reviewed & Not Pertinent - Past Medical History Cardiac Medical History: Reports: Hx Coronary Artery Disease, Hx Heart Attack - 1, Hx Hypercholesterolemia, Hx Hypertension Pulmonary Medical History: Reports: Hx COPD, Hx Pneumonia Neurological Medical History: Reports: Hx Cerebrovascular Accident - x2, last one 2 years ago. Denies: Hx Seizures Endocrine Medical History: Reports: Hx Diabetes Mellitus Type 2. Denies: Hx Diabetes Mellitus Type 1, Hx Hyperthyroidism, Hx Hypothyroidism Renal/ Medical History: Reports: Hx Benign Prostatic Hyperplasia, Hx Kidney Stones. Denies: Hx Peritoneal Dialysis Malignancy Medical History: Reports Hx Colorectal Cancer, Reports Hx Lung Cancer, Reports Hx Skin Cancer GI Medical History: Reports: Hx Diverticulitis. Denies: Hx Cirrhosis, Hx Crohn's Disease, Hx Hepatitis Musculoskeletal Medical History: Reports Hx Arthritis, Denies Hx Gout, Reports Hx Musculoskeletal Trauma Skin Medical History: Denies Hx Eczema, Denies Hx Psoriasis Psychiatric Medical History: Reports: Hx Anxiety, Hx Depression Traumatic Medical History: Reports: Hx Fractures Infectious Medical History: Denies: Hx Hepatitis Past Surgical History: Reports: Hx Appendectomy, Hx Bowel Surgery - resection, Hx Cardiac Catheterization, Hx Cardiac Surgery - right carotid, Hx Carotid Endarterectomy - Right carotid endarterectomy, Hx Coronary Stent - TOTAL OF 3 STENTS. Last one placed in December 2012., Hx Kidney (Renal Surgery) - lithot ripsy, kidney stent, Hx Orthopedic Surgery - right shoulder, left knee - Immunizations Immunizations up to date: Yes Hx Diphtheria, Pertussis, Tetanus Vaccination: Yes Hx Pneumococcal Vaccination: 11/21/15 Review of Systems - Review of Systems Notes: Constitutional: + Hypotensive, + weakness HENT: Negative for sore throat. Eyes: Negative for visual changes. Cardiovascular: Negative for chest pain. Respiratory: Negative for shortness of breath. Gastrointestinal: Negative for abdominal pain, vomiting or diarrhea. Genitourinary: Negative for dysuria. Musculoskeletal: Negative for back pain. Skin: Negative for rash. Neurological: Negative for headaches, weakness or numbness. 10 point ROS negative except as marked above and in HPI. Physical Exam - Vital signs Vitals: Resp Pulse Ox 13 88 L 05/09/20 11:20 05/09/20 11:20 - Notes Notes: PHYSICAL EXAMINATION: Physical Exam: General: Well-nourished well-developed 74-year-old man in no acute distress HEENT: NC/AT, pupils equal round and reactive to light, MM moist,nares clear, oropharynx clear, airway patent Neck: supple, no adenopathy, no masses. Good range of motion Lungs: clear, no wheezing, no rales no rhonchi CVS: Regular rate and rhythm no murmur gallop or rub Abdomen: Soft, active, nontender, no masses, no hepatosplenomegaly Ext: No edema, clubbing or cyanosis. Neuro: Alert and responsive, moving all 4 extremities on command, cranial nerves intact, no focal findings Skin: Intact no open lesions, no rash PSYCH: Normal mood, normal affect. Course - Re-evaluation Re-evalutation: 05/09/20 17:46 10 signal with restricted diffusion seen in the region of the left cerebella ho rizontal fissure. Finding compatible with a subacute ischemic injury. Posterior inferior cerebellar artery territory or watershed zone for the PICA/superior cerebellar artery. - Vital Signs Vital signs: Temp Pulse Resp BP Pulse Ox 98.1 F 61 20 160/61 H 100 05/09/20 23:12 05/10/20 00:00 05/10/20 00:00 05/10/20 00:00 05/10/20 00:00 - Laboratory Result Diagrams: 05/09/20 11:26 05/09/20 11:26 Laboratory results interpreted by me: 05/09/20 05/09/20 05/09/20 11:26 11:26 11:36 RBC 3.57 L Hgb 10.0 L Hct 30.9 L RDW 16.4 H Lymph % (Auto) 11.0 L Creatinine 1.34 H Est GFR (MDRD) Non-Af 52 L Glucose 168 H POC Glucose Creatine Kinase Urine Glucose (UA) 50 H Urine Blood MODERATE H Ur Leukocyte Esterase LARGE H 05/09/20 05/09/20 18:22 18:25 RBC Hgb Hct RDW Lymph % (Auto) Creatinine Est GFR (MDRD) Non-Af Glucose POC Glucose 271 H Creatine Kinase 54 L Urine Glucose (UA) Urine Blood Ur Leukocyte Esterase - Diagnostic Test Radiology reviewed: Image reviewed, Reports reviewed Radiology results interpreted by me: 05/09/20 17:49 MRI noncontrast brain: Findings suggestive of a small left cerebellar horizontal fissure subacute ischemic injury, posterior cerebellar artery territory or watershed zone for the PICA/superior cerebellar artery. - EKG Interpretation by Me EKG shows normal: Sinus rhythm - Normal sinus rhythm with a rate of 75, no acute ST or T wave abnormalities, normal axis. Critical Care Note - Critical Care Note Total time excluding time spent on procedures (mins): 60 - Critical care time spent obtaining history from patient or surrogate, discussions with consultants, development of treatment plan with patient or surrogate, evaluation of patient's response to treatment, examination of patient, ordering and performing treatments and interventions, ordering and review of laboratory studies, re- evaluation of patient's condition, ordering and review of radiographic studies and review of old charts Discharge - Discharge Clinical Impression: Cerebellar infarct, Balance disorder Condition: Fair Disposition: ADMITTED INPATIENT Admitting Provider: [facility] Unit Admitted: [facility]
[2020-05-09 11:59] LABS: ALKALINE PHOSPHATASE 75 U/L (38-126); ANION GAP 9 (5-19); ASPARTATE AMINO TRANSFERASE 47 U/L (17-59); BILIRUBIN,TOTAL 0.6 mg/dL (0.2-1.3); BLOOD UREA NITROGEN 11 mg/dL (7-20); CALCIUM 9.7 mg/dL (8.4-10.2); CARBON DIOXIDE 25 mmol/L (22-30); CHLORIDE 106 mmol/L (98-107); CREATINE KINASE 60 U/L (55-170); GLUCOSE 168 mg/dL (75-110); POTASSIUM 4.2 mmol/L (3.6-5.0)
[2020-05-09 12:13] LABS: CREATINE KINASE MB 0.91 ng/mL (<4.55)
[2020-05-09 12:20] LABS: TROPONIN I < 0.012 ng/mL
[2020-05-09] MEDS ORDERED: CEFTRIAXONE INJ 1000 MG VIAL IV ONE (14:06)
[2020-05-09] MEDS ORDERED: MORPHINE SULFATE 10 MG/ML INJ IV ONE (14:07)
[2020-05-09] MEDS ORDERED: CEFTRIAXONE 1 GM/D5W RTU 1 GM/50 ML RTUPB IV ONE (14:36)
--- NOTE | 2020-05-09 17:35 | RADIOLOGY REPORT (SQ) ---
EXAM DESCRIPTION: MRI HEAD WITHOUT IMAGES COMPLETED DATE/TIME: 05/09/2020 4:59 pm REASON FOR STUDY: Weakness, altered mental status COMPARISON: 12/01/2018 and 04/08/2017 TECHNIQUE: Multiplanar imaging includes non-contrasted T1, T2, FLAIR, and diffusion with ADC map seq uences. Images stored on PACS. LIMITATIONS: None. FINDINGS: ANATOMY: No anomalies. Normal vascular flow voids. Pituitary fossa normal. CSF SPACES: Atrophy induced prominence of ventricles and CSF spaces. CEREBRUM: High signal intensity lesions scattered throughout the white matter on FLAIR imaging with d istribution suggesting micro-vascular ischemic changes. No evidence of hemorrhage, mass, or extraaxi al fluid collection. POSTERIOR FOSSA: A small focus of wedge shaped T2 prolongation seen in the region of the left cerebel lar horizontal fissure demonstrates associated hyperintense T1 signal. No hemorrhage. No edema, mass es or mass effect. Internal auditory canals, cerebello-pontine angles, mastoids normal. DIFFUSION IMAGING: Restricted diffusion correlates to the above described cerebellar T2 prolongation. ORBITS: No masses. Globes normal. PARANASAL SINUSES: No fluid levels. Mucosa normal. OTHER: No other significant finding. IMPRESSION: A small wedge-shaped focus of T1/T2 hyperintense signal with associated restricted diffu carola seen in the region of the left cerebellar horizontal fissure, consistent with subacute ischemic injury involving the posterior inferior cerebellar artery territory or the watershed zone between the PICA and the superior cerebellar artery. No evidence of large territory ischemic injury. Backgroun d of chronic microvascular and age-related involutional changes similar to that seen on comparison MR imaging. EVIDENCE OF ACUTE STROKE: NO. TECHNICAL DOCUMENTATION: JOB ID: [id number] 2010 [employer]- All Rights Reserved Reading location - IP/workstation name: [email or web address]
[2020-05-09] MEDS ORDERED: ACETAMINOPHEN 325 MG TABLET PO PRN (18:01)
[2020-05-09] MEDS ORDERED: NORMAL SALINE 1000 ML 1,000 ML IV PRN ×2 (18:01→21:17)
[2020-05-09] MEDS ORDERED: DEXTROSE 40% GEL 15 GM TUBE PO PRN ×2 (18:10)
[2020-05-09] MEDS ORDERED: DEXTROSE 50%-WATER 25 GM/50 ML DISP.SYRIN IV PRN ×2 (18:10)
[2020-05-09] MEDS ORDERED: GLUCAGON,HUMAN RECOMB 1 MG INJ IM PRN (18:10)
[2020-05-09] MEDS ORDERED: ASPIRIN 325 MG TABLET, ENT COATED PO SCH (19:00)
[2020-05-09 19:19] LABS: CREATINE KINASE MB 0.85 ng/mL (<4.55)
[2020-05-09 19:20] LABS: TROPONIN I < 0.012 ng/mL
--- NOTE | 2020-05-09 20:23 | EKG REPORT ---
SEVERITY:- NORMAL ECG - SINUS RHYTHM : Confirmed by: Prieto Lofton MD 09-May-2020 20:22:11
[2020-05-09] MEDS ORDERED: (PENDING PHARMACY ID) (Albuterol Sulfate 2 PUFF) IH PRN (21:15)
[2020-05-09] MEDS ORDERED: METOPROLOL TARTRATE 50 MG TABLET PO SCH (22:00)
[2020-05-09] MEDS ORDERED: METOPROLOL TARTRATE 25 MG TABLET PO SCH (22:00)
[2020-05-09] MEDS ORDERED: INSULIN LISPRO 100 UNIT/ML 3 ML VIAL SUBCUT SCH (22:00)
[2020-05-09] MEDS ORDERED: ATORVASTATIN CALCIUM 40 MG TABLET PO SCH (22:00)
--- NOTE | 2020-05-09 22:31 | RADIOLOGY REPORT (SQ) ---
CLINICAL INDICATION: TIA. COMPARISON: None. CORRELATION: None. TECHNIQUE: MR angiography was obtained of the extracranial carotid and vertebral arteries using standard protocol. 2-D and 3-D [id number] imaging. Multiplanar and 3-D angiographic reconstructions were obtained. FINDINGS: The origin of great vessels and aortic arch are not well seen. There appears to be a 3 vessel arch RIGHT: The common carotid artery is patent. The internal carotid is patent. The external carotid artery is patent. Atherosclerosis at the level the bifurcation LEFT: The common carotid artery is patent. The internal carotid demonstrates a high-grade stenosis of the bulbar internal carotid measuring greater than 80% diameter reduction stenosis. This is a surgical lesion by diameter reduction criteria.. The external carotid artery is patent. 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 This is a surgical lesion.
--- NOTE | 2020-05-09 22:38 | RADIOLOGY REPORT (SQ) ---
CLINICAL INDICATION: STROKE. . Technique: 3-D [id number] MRA was obtained of the [place] as per standard protocol without the administration of gadolinium. 3-D angiographic reconstructions. Venous artifact COMPARISON: None. CORRELATION: None. FINDINGS: Brain is dictated separately. The intracranial internal carotid arteries are patent, bilaterally. Middle cerebral arteries are patent, bilaterally. Anterior cerebral arteries are patent, bilaterally. Posterior cerebral arteries are patent, bilaterally. Irregularity with tandem mild to moderate stenosis of the P2 segment on the right Anterior communicating artery is patent. Posterior communicating arteries are patent, bilaterally. Vertebrobasilar system is patent. Ectasia of the basilar artery. IMPRESSION: Tandem mild to moderate stenoses of the right P2 segment of the posterior cerebral artery. No other significant findings Brain dictated separately
--- NOTE | 2020-05-10 00:31 | XCELERA REPORT ---
[address] [address] Transthoracic Echocardiogram Report Name: BIRD LOCKWOOD Age: 74 yrs Gender: Male : 1945 Patient Status: Inpatient Patient Location: [address] [place] [address] Study Date: 05/09/2020 07:19 PM Height: 72 in Weight: 207 lb BSA: 2.2 m2 Procedure: A complete two-dimensional transthoracic echocardiogram was performed (2D, M-mode, spectral and color flow Doppler). Images were not obtained from all of the standard acoustic windows due to the limited scope of the study. Images from the parasternal window were difficult to obtain and are suboptimal in quality. The apical views were difficult to obtain and are suboptimal in quality. The subcostal views were difficult to obtain and are suboptimal in quality. Reason For Study: javier Ordering Physician: SHAYNE LEONE Performed By: Racheal Smart Interpretation Summary Technically limited study. The left ventricle is normal in size, thickness and function. Left ventricular systolic function is normal. The Ejection Fraction estimate is 55-60%. Doppler measurements suggest impaired left ventricular relaxation, which is associated with grade I/IV or mild diastolic dysfunction. Regional wall motion abnormalities cannot be excluded due to limited visualization. Valvular structures are not well visualized. No prior studies for comparison. MMode/2D Measurements & Calculations RVDd: 3.3 cm LVIDd: 5.8 cm FS: 38.0 % Ao root diam: 3.3 cm IVSd: 1.4 cm LVIDs: 3.6 cm EDV(Teich): 166.9 ml Ao root area: 8.5 cm2 LVPWd: 0.99 cm ESV(Teich): 54.5 ml LA dimension: 3.7 cm EF(Teich): 67.4 % Doppler Measurements & Calculations MV E max jose luis: MV P1/2t max jose luis: Ao V2 max: LV V1 max P.3 cm/sec 104.5 cm/sec 143.9 cm/sec 4.3 mmHg MV A max jose luis: MV P1/2t: 107.3 msec Ao max PG: LV V1 max: 105.6 cm/sec MVA(P1/2t): 2.0 cm2 8.3 mmHg 104.1 cm/sec MV E/A: 0.91 MV dec slope: 285.2 cm/sec2 MV dec time: 0.27 sec PA V2 max: MV P1/2t-pr_phl: 71.3 cm/sec 107.3 msec PA max P.0 mmHg Left Ventricle The left ventricle is normal in size, thickness and function. Left ventricular systolic function is normal. The Ejection Fraction estimate is 55-60%. Doppler measurements suggest impaired left ventricular relaxation, which is associated with grade I/IV or mild diastolic dysfunction. Regional wall motion abnormalities cannot be excluded due to limited visualization. Right Ventricle The right ventricle is normal in size, thickness and function. The right ventricular systolic function is normal. Atria The right atrium is normal. The left atrial size is normal. The interatrial septum is intact with no evidence for an atrial septal defect. Mitral Valve The mitral valve is not well visualized. There is no mitral valve stenosis. There is no mitral regurgitation noted. Aortic Valve The aortic valve is not well visualized secondary to technical limitations. There is no aortic valve stenosis. No aortic regurgitation is present. Tricuspid Valve The tricuspid valve is not well visualized secondary to technical limitations. There is no tricuspid stenosis. No tricuspid regurgitation. Pulmonic Valve The pulmonic valve is not well visualized. There is no pulmonic valvular stenosis. There is no pulmonic valvular regurgitation. Effusions There is no pericardial effusion. There is no pleural effusion. : SHAYNE LEONE Antonio
[2020-05-10 05:34] VITALS: BP 160/61
[2020-05-10] MEDS ORDERED: (PENDING PHARMACY ID) (Pyridoxine Hcl [Vitamin B-6] 100 MG) PO SCH (08:00)
[2020-05-10] MEDS ORDERED: PYRIDOXINE HCL 50 MG TABLET PO SCH (08:00)
[2020-05-10] MEDS ORDERED: SERTRALINE HCL 50 MG TABLET PO SCH (10:00)
[2020-05-10] MEDS ORDERED: FAMOTIDINE 20 MG TABLET PO SCH (10:00)
--- NOTE | 2020-05-10 11:35 | PDOC H&P ---
History of Present Illness Admission Date/PCP: 05/09/20 18:35 SHAYNE LEONE MD Patient complains of: Syncopal episode History of Present Illness: BIRD LOCKWOOD is a 74 year old male Is a 74-year-old male with a history of the hypertension's type 2 diabetes history of the pancreatic cancer status post surgery history of the lung cancer status post surgery chronic anemia currently see a oncology received the iron transfusion yesterday came to the emergency department while working in the yard and get a syncopal episodes In the emergency department patient's blood pressure was low according to the patient's he took the blood pressure medicine and then he started working and suddenly developed a syncopal episodes In the emergency department initial work-up was all stable patient received IV fluid and blood pressures get better Patient otherwise denied any chest pain no short of breath no nausea no vomiting No weakness no headache Patient have ongoing problem with the memory issue came to see me last week order the MRI as outpatient underwent for the MRI in the emergency department with so the patient have a subacute stroke decided to admit in the hospital Patient otherwise having no any strokelike symptoms patient is fully alert awake oriented talk and walk without any problems Patient's denied any chest pain no short of breath Patient also see a Dr. Zurita as outpatients patient's hemoglobin is 10 Patient also scheduled to see Dr. Ren as an outpatient Past Medical History Cardiac Medical History: Reports: Coronary Artery Disease, Myocardial Infarction - 1, Hyperlipidema, Hypertension Pulmonary Medical History: Reports: Chronic Obstructive Pulmonary Disease (COPD) , Pneumonia Neurological Medical History: Denies: Seizures Endocrine Medical History: Reports: Diabetes Mellitus Type 2 Denies: Diabetes Mellitus Type 1, Hyperthyroidism, Hypothyroidism Malignancy Medical History: Reports: Colorectal Cancer, Lung Cancer, Skin Cancer GI Medical History: Reports: Diverticulitis Denies: Cirrhosis, Crohn's Disease, Hepatitis Musculoskeltal Medical History: Reports: Arthritis Denies: Gout Skin Medical History: Denies: Eczema, Psoriasis Psychiatric Medical History: Reports: Depression Hematology: Denies: Anemia, Bleeding Tendencies Past Surgical History Past Surgical History: Reports: Appendectomy, Cardiac Catheterization, Carotid Endarterectomy - Right carotid endarterectomy, Coronary Stent - TOTAL OF 3 STENTS. Last one placed in December 2012., Orthopedic Surgery - right shoulder, left knee Social History Information Source: Patient Smoking Status: Former Smoker Frequency of Alcohol Use: None Hx Recreational Drug Use: No Drugs: None Hx Prescription Drug Abuse: No Family History Family History: None, Reviewed & Not Pertinent Parental Family History Reviewed: Yes Children Family History Reviewed: Yes Sibling(s) Family History Reviewed.: Yes Medication/Allergy Home Medications: Aspirin [Ecotrin 81 mg EC Tablet] 81 mg PO QPM 11/30/18 Atorvastatin Calcium [Lipitor 40 mg Tablet] 40 mg PO QHS 11/30/18 Cholecalciferol (Vitamin D3) [Vitamin D3 5000 unit Capsule] 1,000 unit PO DAILY 11/30/18 Cyanocobalamin (Vitamin B-12) [Vitamin B-12] 500 mcg SL QAM 11/30/18 Lisinopril [Prinivil 2.5 mg Tablet] 2.5 mg PO DAILY 11/30/18 Magnesium Oxide [Magnesium] 500 mg PO QAM 11/30/18 Metoprolol Tartrate [Lopressor 50 mg Tablet] 50 mg PO Q12 11/30/18 Pyridoxine HCl [Vitamin B-6] 100 mg PO QAM 11/30/18 Sertraline HCl [Zoloft 50 mg Tablet] 100 mg PO DAILY 11/30/18 Albuterol Sulfate [Proair HFA Inhalation Aerosol 8.5 gm MDI] 2 puff IH ASDIR PRN 05/09/20 Famotidine [Acid Medical Territory Manager] 20 mg PO BID 05/09/20 Insulin Aspart [Novolog] 10 unit SQ AC 05/09/20 Insulin Degludec [Tresiba] 30 unit SQ QPM 05/09/20 Isosorbide Mononitrate [Imdur 30 mg Tablet.er] 30 mg PO QAM 05/09/20 Allergies/Adverse Reactions: Iodinated Contrast Media Allergy (Intermediate, Verified 11/20/18 12:39) itching latex [Latex] Allergy (Verified 11/20/18 12:39) Review of Systems Constitutional: ABSENT: chills, fever(s), headache(s), weight gain, weight loss Eyes: ABSENT: visual disturbances Ears: ABSENT: hearing changes Cardiovascular: ABSENT: chest pain, dyspnea on exertion, edema, orthropnea, palpitations Respiratory: ABSENT: cough, hemoptysis Gastrointestinal: ABSENT: abdominal pain, constipation, diarrhea, hematemesis, hematochezia, nausea, vomiting Genitourinary: ABSENT: dysuria, hematuria Musculoskeletal: ABSENT: joint swelling Integumentary: ABSENT: rash, wounds Neurological: ABSENT: abnormal gait, abnormal speech, confusion, dizziness, focal weakness, syncope Psychiatric: ABSENT: anxiety, depression, homidical ideation, suicidal ideation Endocrine: ABSENT: cold intolerance, heat intolerance, menstrual abnormalities, polydipsia, polyuria Hematologic/Lymphatic: ABSENT: easy bleeding, easy bruising, lymphadenopathy Physical Exam Vital Signs: Temp Pulse Resp BP Pulse Ox 98.1 F 61 20 160/61 H 100 05/09/20 23:12 05/10/20 00:00 05/10/20 00:00 05/10/20 00:00 05/10/20 00:00 Intake & Output 05/09/20 05/10/20 05/11/20 06:59 06:59 06:59 Intake Total 800 Balance 800 Weight 93.89 kg General appearance: PRESENT: no acute distress, well-developed, well-nourished Head exam: PRESENT: atraumatic, normocephalic Eye exam: PRESENT: conjunctiva pink, EOMI, PERRLA. ABSENT: scleral icterus Ear exam: PRESENT: normal external ear exam Mouth exam: PRESENT: moist, tongue midline Neck exam: PRESENT: full ROM. ABSENT: carotid bruit, JVD, lymphadenopathy, thyromegaly Respiratory exam: PRESENT: clear to auscultation anna Cardiovascular exam: PRESENT: RRR. ABSENT: diastolic murmur, rubs, systolic murmur Pulses: PRESENT: normal dorsalis pedis pul, +2 pedal pulses bilateral Vascular exam: PRESENT: normal capillary refill GI/Abdominal exam: PRESENT: normal bowel sounds, soft. ABSENT: distended, guarding, mass, organolmegaly, rebound, tenderness Rectal exam: PRESENT: deferred Musculoskeletal exam: PRESENT: ambulatory Neurological exam: PRESENT: alert, awake, oriented to person, oriented to place, oriented to time, oriented to situation, CN II-XII grossly intact, normal gait. ABSENT: motor sensory deficit Psychiatric exam: PRESENT: appropriate affect, normal mood. ABSENT: homicidal ideation, suicidal ideation Skin exam: PRESENT: dry, intact, warm. ABSENT: cyanosis, rash Results Laboratory Results: 05/09/20 11:26 05/09/20 11:26 05/09/20 05/09/20 05/09/20 11:26 11:26 11:36 WBC 5.2 RBC 3.57 L Hgb 10.0 L Hct 30.9 L MCV 87 MCH 27.9 MCHC 32.2 RDW 16.4 H Plt Count 228 Seg Neutrophils % 75.3 Sodium 140.0 Potassium 4.2 Chloride 106 Carbon Dioxide 25 Anion Gap 9 BUN 11 Creatinine 1.34 H Est GFR ( Amer) > 60 Glucose 168 H Calcium 9.7 Total Bilirubin 0.6 AST 47 Alkaline Phosphatase 75 Total Protein 7.0 Albumin 4.0 Urine Color YELLOW Urine Appearance SLIGHTLY-CLOUDY Urine pH 6.0 Ur Specific [place] 1.012 Urine Protein NEGATIVE Urine Glucose (UA) 50 H Urine Ketones NEGATIVE Urine Blood MODERATE H Urine Nitrite NEGATIVE Ur Leukocyte Esterase LARGE H Urine WBC (Auto) 133 Urine RBC (Auto) 81 Blood Type Antibody Screen 05/09/20 12:00 WBC RBC Hgb Hct MCV MCH MCHC RDW Plt Count Seg Neutrophils % Sodium Potassium Chloride Carbon Dioxide Anion Gap BUN Creatinine Est GFR ( Amer) Glucose Calcium Total Bilirubin AST Alkaline Phosphatase Total Protein Albumin Urine Color Urine Appearance Urine pH Ur Specific [place] Urine Protein Urine Glucose (UA) Urine Ketones Urine Blood Urine Nitrite Ur Leukocyte Esterase Urine WBC (Auto) Urine RBC (Auto) Blood Type A POSITIVE Antibody Screen NEGATIVE 05/09/20 05/09/20 05/09/20 11:26 11:26 18:25 Creatine Kinase 60 CK-MB (CK-2) 0.91 0.85 Troponin I < 0.012 < 0.012 05/09/20 18:25 Creatine Kinase 54 L CK-MB (CK-2) Troponin I Impressions: Brain MRI with MRA 05/09/20 00:00 IMPRESSION: Tandem mild to moderate stenoses of the right P2 segment of the posterior cerebral artery. No other significant findings Brain dictated separately Neck MRA 05/09/20 00:00 IMPRESSION: Critical stenosis of the bulbar left internal carotid artery with greater than 80% diameter reduction stenosis. This is a surgical lesion. Head MRI 05/09/20 15:03 IMPRESSION: A small wedge-shaped focus of T1/T2 hyperintense signal with associated restricted diffusion seen in the region of the left cerebellar horizontal fissure, consistent with subacute ischemic injury involving the posterior inferior cerebellar artery territory or the watershed zone between the PICA and the superior cerebellar artery. No evidence of large territory ischemic injury. Background of chronic microvascular and age-related involutional changes similar to that seen on comparison MR imaging. EVIDENCE OF ACUTE STROKE: NO. Assessment & Plan - Diagnosis (1) Syncopal episodes Qualifiers: Syncope type: unspecified Qualified Code(s): R55 - Syncope and collapse Is this a current diagnosis for this admission?: Yes Plan: Patients have a recent neurological events most likely subacute cerebrovascular accidents patient's primary need a cardiac evaluations Patient stated MRA head (2) Cerebrovascular accident Qualifiers: CVA mechanism: unspecified Qualified Code(s): I63.9 - Cerebral infarction, unspecified Is this a current diagnosis for this admission?: Yes Plan: Most likely a subacute stroke patient is currently having no symptoms We will start the patient on aspirin 325 mg p.o. daily Will work-up for the stroke including the MRA of the head and MRI of the neck for further evaluate continues the statin We will get the echocardiogram and cardiology evaluations (3) Carotid artery disorder Is this a current diagnosis for this admission?: Yes Plan: Patient is to be ordered the MRA head (4) Pancreatic cancer Qualifiers: Pancreatic malignancy location: unspecified Qualified Code(s): C25.9 - Malignant neoplasm of pancreas, unspecified Is this a current diagnosis for this admission?: Yes Plan: Status post surgery (5) Lung cancer Qualifiers: Lung location: unspecified part of lung Is this a current diagnosis for this admission?: Yes Plan: Status post surgery (6) Coronary artery disease Qualifiers: Coronary Disease-Associated Artery/Lesion type: unspecified vessel or lesion type Associated angina: without angina Is this a current diagnosis for this admission?: Yes Plan: We will consult the patient's cardiology to the rule out acute coronary events (7) Anemia, iron deficiency Qualifiers: Iron deficiency anemia type: unspecified iron deficiency Qualified Code(s): D50.9 - Iron deficiency anemia, unspecified Is this a current diagnosis for this admission?: Yes Plan: Currently received iron transfusions (9) Diabetes mellitus type 2, controlled Qualifiers: Diabetes mellitus ferry terminal agent insulin use: with alf use Is this a current diagnosis for this admission?: Yes Plan: Continues to current insulin - Time Time Spent: 50 to 70 Minutes Medications reviewed and adjusted accordingly: Yes Anticipated discharge: Home Within: Other - Inpatient Certification Based on my medical assessment, after consideration of the patient's comorbidities, presenting symptoms, or acuity I expect that the services needed warrant INPATIENT care.: Yes I certify that my determination is in accordance with my understanding of Medicare's requirements for reasonable and necessary INPATIENT services [42 CFR 412.3e].: Yes Medical Necessity: Significant Comorbidiites Make Outpatient Treatment Too Risky, Need Close Monitoring Due to Risk of Patient Decompensation, Need For Continuous Telemetry Monitoring, Need for Neurological Checks Post Hospital Care: D/C Shift Mechanic Documentation - Plan Summary Plan Summary: Admit the patient in the IMCU with stroke protocol
--- NOTE | 2020-05-10 11:48 | PDOC DISCHARGE SUMMARY ---
Impression - Admit/DC Date/PCP Admission Date/Primary Care Provider: 05/09/20 18:35 SHAYNE LEONE MD Discharge Date: 05/10/20 - Discharge Diagnosis (1) Syncopal episodes Is this a current diagnosis for this admission?: Yes (2) Cerebrovascular accident Is this a current diagnosis for this admission?: Yes (3) Carotid artery disorder Is this a current diagnosis for this admission?: Yes (4) Pancreatic cancer Is this a current diagnosis for this admission?: Yes (5) Lung cancer Is this a current diagnosis for this admission?: Yes (6) Coronary artery disease Is this a current diagnosis for this admission?: Yes (7) Anemia, iron deficiency Is this a current diagnosis for this admission?: Yes (9) Diabetes mellitus type 2, controlled Is this a current diagnosis for this admission?: Yes - Additional Information Referrals: ISAIAH QUEEN MD [ACTIVE STAFF] - Follow up as needed Home Medications: Aspirin [Ecotrin 81 mg EC Tablet] 81 mg PO QPM 11/30/18 Atorvastatin Calcium [Lipitor 40 mg Tablet] 40 mg PO QHS 11/30/18 Cholecalciferol (Vitamin D3) [Vitamin D3 5000 unit Capsule] 1,000 unit PO DAILY 11/30/18 Cyanocobalamin (Vitamin B-12) [Vitamin B-12] 500 mcg SL QAM 11/30/18 Lisinopril [Prinivil 2.5 mg Tablet] 2.5 mg PO DAILY 11/30/18 Magnesium Oxide [Magnesium] 500 mg PO QAM 11/30/18 Metoprolol Tartrate [Lopressor 50 mg Tablet] 50 mg PO Q12 11/30/18 Pyridoxine HCl [Vitamin B-6] 100 mg PO QAM 11/30/18 Sertraline HCl [Zoloft 50 mg Tablet] 100 mg PO DAILY 11/30/18 Albuterol Sulfate [Proair HFA Inhalation Aerosol 8.5 gm MDI] 2 puff IH ASDIR PRN 05/09/20 Famotidine [Acid Wound Treatment Rn] 20 mg PO BID 05/09/20 Insulin Aspart [Novolog] 10 unit SQ AC 05/09/20 Insulin Degludec [Tresiba] 30 unit SQ QPM 05/09/20 Isosorbide Mononitrate [Imdur 30 mg Tablet.er] 30 mg PO QAM 05/09/20 History of Present Illiness History of Present Illness: BIRD LOCKWOOD is a 74 year old male Is a 74-year-old male with a history of the hypertension's type 2 diabetes history of the pancreatic cancer status post surgery history of the lung cancer status post surgery chronic anemia currently see a oncology received the iron transfusion yesterday came to the emergency department while working in the yard and get a syncopal episodes In the emergency department patient's blood pressure was low according to the patient's he took the blood pressure medicine and then he started working and suddenly developed a syncopal episodes In the emergency department initial work-up was all stable patient received IV fluid and blood pressures get better Patient otherwise denied any chest pain no short of breath no nausea no vomiting No weakness no headache Patient have ongoing problem with the memory issue came to see me last week order the MRI as outpatient underwent for the MRI in the emergency department so the patient have a subacute stroke decided to admit in the hospital Patient otherwise having no any strokelike symptoms patient is fully alert awake oriented talk and walk without any problems Patient's denied any chest pain no short of breath Patient also see a Dr. Zurita as outpatients patient's hemoglobin is 10 Patient also scheduled to see Dr. Ren as an outpatient Hospital Course Hospital Course: This 74-year-old male admitting in the hospital for further subacute strokes and carotid artery disease Patient put on the stroke protocol Patient is otherwise doing well Middle of the night patient decided he does not want to stay in the hospital because his have a recent eye surgery and he cannot stay in the hospital and he left AMA I spoke myself to the patient about the all MRI and MRA report and concern about to getting the beak strokes and sudden and paralyzed patient understand very well still do not want to stay he said he cannot live with his I spoke again myself this morning to call him patient is currently doing okay spoke with his and explained to his the all MRI/MRA report I explained the patient's that patient's left AMA patient should be in the hospital According to the she will watch him if any dizziness any chest pain any blurry visions call the EMS again Patients definitely need to see a vascular surgery but patients do not want to come back in the hospital he preferred to come in office on Tuesday The patient's remained stable discussed with the patient is to continue his a spirin continue statin will cut down the blood pressure medications Very extensive discussion up to the left the patient AMA myself to the patient and the patient's at home today around 11:40 AM Reviewed all echocardiogram report MRI report Discussed with the patient and the again given the patient's left AMA Physical Exam Vital Signs: Temp Pulse Resp BP Pulse Ox 98.1 F 61 20 160/61 H 100 05/09/20 23:12 05/10/20 00:00 05/10/20 00:00 05/10/20 00:00 05/10/20 00:00 Intake & Output 05/09/20 05/10/20 05/11/20 06:59 06:59 06:59 Intake Total 800 Balance 800 Weight 93.89 kg Additional comments: Patient's left AMA Results Laboratory Results: WBC 5.2 10^3/uL (4.0-10.5) 05/09/20 11:26 RBC 3.57 10^6/uL (4.35-5.55) L 05/09/20 11:26 Hgb 10.0 g/dL (13.5-17.0) L 05/09/20 11:26 Hct 30.9 % (37.9-51.0) L 05/09/20 11:26 MCV 87 fl (80-97) 05/09/20 11:26 MCH 27.9 pg (27.0-33.4) 05/09/20 11:26 MCHC 32.2 g/dL (32.0-36.0) 05/09/20 11:26 RDW 16.4 % (11.5-14.0) H 05/09/20 11:26 Plt Count 228 10^3/uL (150-450) 05/09/20 11:26 Lymph % (Auto) 11.0 % (13-45) L 05/09/20 11:26 [place] % (Auto) 10.6 % (3-13) 05/09/20 11:26 Eos % (Auto) 2.4 % (0-6) 05/09/20 11:26 Baso % (Auto) 0.7 % (0-2) 05/09/20 11:26 Absolute Neuts (auto) 3.9 10^3/uL (1.7-8.2) 05/09/20 11:26 Absolute Lymphs (auto) 0.6 10^3/uL (0.5-4.7) 05/09/20 11:26 Absolute Monos (auto) 0.5 10^3/uL (0.1-1.4) 05/09/20 11:26 Absolute Eos (auto) 0.1 10^3/uL (0.0-0.6) 05/09/20 11:26 Absolute Basos (auto) 0.0 10^3/uL (0.0-0.2) 05/09/20 11:26 Seg Neutrophils % 75.3 % (42-78) 05/09/20 11:26 Sodium 140.0 mmol/L (137-145) 05/09/20 11:26 Potassium 4.2 mmol/L (3.6-5.0) 05/09/20 11:26 Chloride 106 mmol/L (98-107) 05/09/20 11:26 Carbon Dioxide 25 mmol/L (22-30) 05/09/20 11:26 Anion Gap 9 (5-19) 05/09/20 11:26 BUN 11 mg/dL (7-20) 05/09/20 11:26 Creatinine 1.34 mg/dL (0.52-1.25) H 05/09/20 11:26 Est GFR ( Amer) > 60 (>60) 05/09/20 11:26 Est GFR (MDRD) Non-Af 52 (>60) L 05/09/20 11:26 Glucose 168 mg/dL (75-110) H 05/09/20 11:26 POC Glucose 246 mg/dL (70-110) H 05/09/20 21:01 Calcium 9.7 mg/dL (8.4-10.2) 05/09/20 11:26 Total Bilirubin 0.6 mg/dL (0.2-1.3) 05/09/20 11:26 Direct Bilirubin 0.0 mg/dL (0.0-0.4) 05/09/20 11:26 Neonat Total Bilirubin Not Reportable 05/09/20 11:26 Neonat Direct Bilirubin Not Reportable 05/09/20 11:26 Neonat Indirect Bili Not Reportable 05/09/20 11:26 AST 47 U/L (17-59) 05/09/20 11:26 ALT 44 U/L (<50) 05/09/20 11:26 Alkaline Phosphatase 75 U/L (38-126) 05/09/20 11:26 Creatine Kinase 54 U/L (55-170) L 05/09/20 18:25 CK-MB (CK-2) 0.85 ng/mL (<4.55) 05/09/20 18:25 Troponin I < 0.012 ng/mL 05/09/20 18:25 Total Protein 7.0 g/dL (6.3-8.2) 05/09/20 11:26 Albumin 4.0 g/dL (3.5-5.0) 05/09/20 11:26 Urine Color YELLOW 05/09/20 11:36 Urine Appearance SLIGHTLY-CLOUDY 05/09/20 11:36 Urine pH 6.0 (5.0-9.0) 05/09/20 11:36 Ur Specific [place] 1.012 05/09/20 11:36 Urine Protein NEGATIVE mg/dL (NEGATIVE) 05/09/20 11:36 Urine Glucose (UA) 50 mg/dL (NEGATIVE) H 05/09/20 11:36 Urine Ketones NEGATIVE mg/dL (NEGATIVE) 05/09/20 11:36 Urine Blood MODERATE (NEGATIVE) H 05/09/20 11:36 Urine Nitrite NEGATIVE (NEGATIVE) 05/09/20 11:36 Urine Bilirubin NEGATIVE (NEGATIVE) 05/09/20 11:36 Urine Urobilinogen NEGATIVE mg/dL (<2.0) 05/09/20 11:36 Ur Leukocyte Esterase LARGE (NEGATIVE) H 05/09/20 11:36 Urine WBC (Auto) 133 /HPF 05/09/20 11:36 Urine RBC (Auto) 81 /HPF 05/09/20 11:36 U Hyaline Cast (Auto) 31 /LPF 05/09/20 11:36 Squamous Epi Cells Auto <1 /HPF 05/09/20 11:36 Amorphous Sediment Auto TRACE /HPF 05/09/20 11:36 Urine Mucus (Auto) RARE /LPF 05/09/20 11:36 Urine Ascorbic Acid NEGATIVE (NEGATIVE) 05/09/20 11:36 Blood Type A POSITIVE 05/09/20 12:00 Antibody Screen NEGATIVE 05/09/20 12:00 05/09/20 05/09/20 11:26 18:25 CK-MB (CK-2) 0.91 0.85 Troponin I < 0.012 < 0.012 Impressions: Brain MRI with MRA 05/09/20 00:00 IMPRESSION: Tandem mild to moderate stenoses of the right P2 segment of the posterior cerebral artery. No other significant findings Brain dictated separately Neck MRA 05/09/20 00:00 IMPRESSION: Critical stenosis of the bulbar left internal carotid artery with greater than 80% diameter reduction stenosis. This is a surgical lesion. Head MRI 05/09/20 15:03 IMPRESSION: A small wedge-shaped focus of T1/T2 hyperintense signal with associ ated restricted diffusion seen in the region of the left cerebellar horizontal fissure, consistent with subacute ischemic injury involving the posterior inferior cerebellar artery territory or the watershed zone between the PICA and the superior cerebellar artery. No evidence of large territory ischemic injury. Background of chronic microvascular and age-related involutional changes similar to that seen on comparison MR imaging. EVIDENCE OF ACUTE STROKE: NO. Plan Time Spent: Greater than 30 Minutes - Patient's left AMA Discussed with the patient's myself today explained about the all the report and importance about the hospitalizations Patient's will follow Tuesday patient is very noncompliance Stroke Is this a Stroke Patient?: Yes Stroke Pt being discharged on Anti-thrombolytic therapy?: Yes Stroke Pt being discharged on Anti-coagulation therapy?: No Reason(s) for not prescribing Anti-coagulation therapy:: Not indicated Stroke Pt being discharged on Statins?: Yes Acute Heart Failure - Is this a Heart Failure Patient?: No
[2020-05-10] MEDS ORDERED: CEFTRIAXONE 1 GM/D5W RTU 1 GM/50 ML RTUPB IV SCH (18:00)
[2020-05-10] MEDS ORDERED: INSULIN DEGLUDEC 30 UNIT SUBCUT SCH (18:00)
== END 2020-05-10 01:30 | disposition left against medical advice (07) | DRG 65 ==
LOC: ER 11:18 → EH 18:35 → 5 19:56
PROVIDERS: ADMIT Family Medicine; ATTEND Family Medicine
DX: I63.50 Cerebral infarction due to unspecified occlusion or stenosis of unspecified cerebral artery (principal); C25.9 Malignant neoplasm of pancreas, unspecified; C34.90 Malignant neoplasm of unspecified part of unspecified bronchus or lung; R55 Syncope and collapse; E11.9 Type 2 diabetes mellitus without complications; I10 Essential (primary) hypertension; I25.10 Atherosclerotic heart disease of native coronary artery without angina pectoris; E78.5 Hyperlipidemia, unspecified; I25.2 Old myocardial infarction; Z79.899 Other long term (current) drug therapy; M19.90 Unspecified osteoarthritis, unspecified site; F32.9 Major depressive disorder, single episode, unspecified; Z79.82 Long term (current) use of aspirin; Z79.4 Long term (current) use of insulin; Z91.041 Radiographic dye allergy status; Z91.040 Latex allergy status; D50.9 Iron deficiency anemia, unspecified; Z87.891 Personal history of nicotine dependence; J44.9 Chronic obstructive pulmonary disease, unspecified; Z86.73 Personal history of transient ischemic attack (TIA), and cerebral infarction without residual deficits; Z95.5 Presence of coronary angioplasty implant and graft
CPT/HCPCS: 36415; 70544; 70547; 70551; 80053; 81001; 82550; 82553; 82962; 84484; 85025; 86850; 86900; 86901; 87040; 87077; 87086; 87088; 87150; 87186; 93005; 93010; 93306; 96361; 96365; 96375; 99291; J0696; J1815; J2270; J3490; J7030

== ENCOUNTER → 2020-06-06 | Outpatient (CLI) | payer MEDICARE, BC ==
--- NOTE | 2020-06-06 14:21 | RADIOLOGY REPORT (SQ) ---
EXAM DESCRIPTION: CHEST PA/LATERAL IMAGES COMPLETED DATE/TIME: 06/06/2020 1:22 pm REASON FOR STUDY: COUGH COMPARISON: 09/03/2019 EXAM PARAMETERS: NUMBER OF VIEWS: two views TECHNIQUE: Digital Frontal and Lateral radiographic views of the chest acquired. RADIATION DOSE: NA LIMITATIONS: none FINDINGS: LUNGS AND PLEURA: There is linear atelectasis in the right base. There is a right pleural effusion increased from prior study. Left lung field is clear. MEDIASTINUM AND HILAR STRUCTURES: No masses or contour abnormalities. HEART AND VASCULAR STRUCTURES: Heart normal size. No evidence for failure. BONES: No acute findings. HARDWARE: None in the chest. OTHER: No other significant finding. IMPRESSION: Linear atelectasis in the right base. Right pleural effusion which appears increased in size from prior study. TECHNICAL DOCUMENTATION: JOB ID: [id number] 2010 [employer]- All Rights Reserved Reading location - IP/workstation name: [email or web address]
== END ==
LOC: OD 12:01
PROVIDERS: ATTEND Family Medicine
DX: J90 Pleural effusion, not elsewhere classified (principal); R05 Cough
CPT/HCPCS: 71046

== ENCOUNTER → 2020-06-16 | Outpatient (CLI) | payer MEDICARE, BC ==
--- NOTE | 2020-06-16 15:29 | RADIOLOGY REPORT (SQ) ---
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 Images reviewed with lung, soft tissue and bone windows. Reconstructed coronal and sagittal MPR images reviewed. All images stored on PACS. All CT scanners at this facility use dose modulation, iterative reconstruction, and/or weight based d osing when appropriate to reduce radiation dose to as low as reasonably achievable (ALARA). [facility]: Dose Right [facility]: CareDose [facility]: Dose Right [facility]: [employer] 4D [facility]: [employer] RADIATION DOSE: CT Rad equipment meets quality standard of care and radiation dose reduction techniq ues were employed. CTDIvol: 12.5 - 13.7 mGy. DLP: 1292 mGy-cm. mGy. LIMITATIONS: None. FINDINGS: AXILLAE: No adenopathy. CHEST WALL: No masses. No subcutaneous air. LUNGS: Stable right-sided scarring. Increasing fibrosis in the right lung base. No suspicious pulmo nary nodules. Underlying emphysematous change. PLEURA: No effusions. No calcifications. THYROID: No masses or significant asymmetry. HILAR AND MEDIASTINAL STRUCTURES: No identified masses or abnormal nodes. AORTA AND GREAT VESSELS: No aneurysm. HEART: No pericardial effusion. HARDWARE AND LIFELINES: None. BONES: No significant finding. OTHER: No other significant finding. IMPRESSION: Stable scarring. Mild bilateral emphysematous change. No evidence of metastatic diseas e. COMPARISON: None. TECHNIQUE: CT scan of the abdomen and pelvis performed without intravenous contrast and withoutoral contrast using helical scanning technique with dynamic intravenous contrast injection. Images review ed with lung, soft tissue and bone windows. Reconstructed coronal and sagittal MPR images reviewed. All images stored on PACS. All CT scanners at this facility use dose modulation, iterative reconstruction, and/or weight based d osing when appropriate to reduce radiation dose to as low as reasonably achievable (ALARA). [facility]: Dose Right [facility]: SureCare [facility]: Dose Right [facility]: Teradose 4D [facility]: [employer] RADIATION DOSE: CT Rad equipment meets quality standard of care and radiation dose reduction techniq ues were employed. CTDIvol: 12.5 - 13.7 mGy. DLP: 1292 mGy-cm.mGy. LIMITATIONS: None. FINDINGS: LIVER: Normal size. No masses. No dilated ducts. SPLEEN: Normal size. No focal lesions. PANCREAS: Postsurgical changes. Prior Whipple procedure. No soft tissue masses. GALLBLADDER: Contracted or surgically absent. There are clips in the gallbladder fossa. ADRENAL GLANDS: Stable in appearance mild fullness on the left. RIGHT KIDNEY AND URETER: No solid masses. Assessment limited by lack of IV contrast. No significant c alcification. No hydronephrosis or hydroureter. Small stable right renal cyst. LEFT KIDNEY AND URETER: No solid masses. Assessment limited by lack of IV contrast. No significant ca lcification. No hydronephrosis or hydroureter. Stable left renal cyst. There is a 2.6 mm nonobstruc ting left renal stone. AORTA AND VESSELS: Unchanged. Largest diameter is 3.0 x 2.8 cm. RETROPERITONEUM: No retroperitoneal adenopathy, hemorrhage or masses. APPENDIX: Normal. LARGE AND SMALL BOWEL: No dilatation. No masses. No wall thickening. ABDOMINAL WALL: No hernia or masses. PERITONEAL CAVITY: No free air. No free fluid. No peritoneal implants or masses. PELVIS: No mass or free fluid. Normal bladder. BONES: No significant or acute findings. OTHER: No other significant finding. IMPRESSION: Postsurgical changes with prior Whipple procedure. No evidence of metastatic disease in the abdomen or pelvis. Stable small left renal cyst. Stable 3.0 x 2.8 cm infrarenal abdominal aortic aneurysm. Please see below for recommended follow-up . Nonobstructing right renal pelvis stone measured at 2.6 mm. COMMENT: AAA Size: Follow-up Recommendation 3.0-3.4 cm Every 3 years *Based upon the Society for Vascular Surgery Guidelines: J Vasc Surg. 2009 Oct;50(4 Suppl):S2-49 *For aortas of maximum diameter of 2.6-2.9 cm meeting the criteria for AAA (?1.5 x proximal normal se gment) TECHNICAL DOCUMENTATION: JOB ID: [id number] Quality ID # 436: Final reports with documentation of one or more dose reduction techniques (e.g., Au tomated exposure control, adjustment of the mA and/or kV according to patient size, use of iterative reconstruction technique) 2010 [employer]- All Rights Reserved Reading location - IP/workstation name: [email or web address]
== END ==
LOC: RAD 14:45
PROVIDERS: ATTEND Internal Medicine
DX: C25.0 Malignant neoplasm of head of pancreas (principal)
CPT/HCPCS: 71250; 74176

== ENCOUNTER → 2020-07-17 | Outpatient (CLI) | payer MEDICARE, BC ==
[2020-07-17 14:08] LABS: HEMATOCRIT 28.1 % (37.9-51.0); HEMOGLOBIN 9.3 g/dL (13.5-17.0); MEAN CORPUSCULAR HEMOGLOBIN 27.9 pg (27.0-33.4); MEAN CORPUSCULAR VOLUME 85 fl (80-97); PLATELET COUNT 328 10^3/uL (150-450); RED BLOOD COUNT 3.32 10^6/uL (4.35-5.55); RED CELL DISTRIBUTION WIDTH 18.2 % (11.5-14.0); WHITE BLOOD COUNT 10.9 10^3/uL (4.0-10.5)
[2020-07-17 14:19] LABS: ANION GAP 14 (5-19); BLOOD UREA NITROGEN 23 mg/dL (7-20); CALCIUM 9.1 mg/dL (8.4-10.2); CARBON DIOXIDE 23 mmol/L (22-30); CHLORIDE 105 mmol/L (98-107); GLUCOSE 152 mg/dL (75-110); POTASSIUM 3.5 mmol/L (3.6-5.0)
[2020-07-17 14:23] LABS: APPEARANCE,URINE CLOUDY; BILIRUBIN,URINE NEGATIVE (NEGATIVE); COLOR,URINE YELLOW; GLUCOSE, URINE >=500 mg/dL (NEGATIVE); KETONES,URINE NEGATIVE (NEGATIVE); LEUKOCYTE ESTERASE,URINE LARGE (NEGATIVE); NITRITE,URINE NEGATIVE (NEGATIVE); PROTEIN,URINE 100 mg/dL (NEGATIVE); URINE SPECIFIC GRAVITY 1.015; UROBILINOGEN,URINE NEGATIVE mg/dL (<2.0)
[2020-07-17 14:31] LABS: ADD MANUAL MICROSCOPIC YES; BACTERIA,URINE 1+ /HPF; RBC,URINE 20-30 /HPF; WBC,URINE TOO NUMEROUS TO CNT /HPF
[2020-07-17 14:40] LABS: ABSOLUTE LYMPHOCYTES# (MANUAL) 1.9 10^3/uL (0.5-4.7); ABSOLUTE MONOCYTES # (MANUAL) 0.9 10^3/uL (0.1-1.4); BASOPHILS % (MANUAL) 1 % (0-2); EOSINOPHILS % (MANUAL) 0 % (0-6); LYMPHOCYTES % (MANUAL) 17 % (13-45); MONOCYTES % (MANUAL) 8 % (3-13); SEGMENTED NEUTROPHILS % (MAN) 74 % (42-78); TOTAL CELLS COUNTED 100
[2020-07-17 14:42] LABS: ANISOCYTOSIS 2+; OVALOCYTES SLIGHT; TARGET CELLS SLIGHT
[2020-07-17 14:43] LABS: PLATELET COMMENT ADEQUATE
== END ==
LOC: OD 13:14
PROVIDERS: ATTEND Family Medicine
DX: A49.9 Bacterial infection, unspecified (principal); N39.0 Urinary tract infection, site not specified; N17.9 Acute kidney failure, unspecified
CPT/HCPCS: 36415; 80048; 81001; 85025; 87086

== ENCOUNTER → 2020-09-19 | Outpatient (CLI) | payer MEDICARE, BC ==
--- NOTE | 2020-09-19 09:07 | RADIOLOGY REPORT (SQ) ---
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 Images reviewed with lung, soft tissue and bone windows. Reconstructed coronal and sagittal MPR images reviewed. All images stored on PACS. All CT scanners at this facility use dose modulation, iterative reconstruction, and/or weight based d osing when appropriate to reduce radiation dose to as low as reasonably achievable (ALARA). [facility]: Dose Right [facility]: CareDose [facility]: Dose Right [facility]: Teradose 4D [facility]: [employer] RADIATION DOSE: CT Rad equipment meets quality standard of care and radiation dose reduction techniq ues were employed. CTDIvol: 11.2 - 12.8 mGy. DLP: 1135 mGy-cm. mGy. LIMITATIONS: None. FINDINGS: AXILLAE: No adenopathy. CHEST WALL: No masses. No subcutaneous air. LUNGS: Stable bilateral emphysematous change. New 8 mm nodule in the superior segment of the left lo wer lobe. This is best demonstrated on series 6, image 31. There is a smaller 2.8 mm nodule seen on the same image adjacent to the fissure which is new from prior study as well. Small 2.8 mm nodule i n the left upper lobe best demonstrated on series 6, image 37. There is scarring in the right lower lobe. There is a 9.4 subpleural nodule on series 6, image 55 slightly spiculated. This measured 8 m m on prior study. This change may be due to slight difference in scan technique and angle. There is a new ground-glass opacity on series 6, image 62. This measures 1.3 cm. Interstitial airspace dise ase in the right medial base previously noted is markedly improved. PLEURA: No effusions. No calcifications. THYROID: No masses or significant asymmetry. HILAR AND MEDIASTINAL STRUCTURES: No identified masses or abnormal nodes. AORTA AND GREAT VESSELS: No aneurysm. HEART: No pericardial effusion. HARDWARE AND LIFELINES: None. BONES: No significant finding. OTHER: No other significant finding. IMPRESSION: 1. New left-sided pulmonary nodules. Most suspicious in 8 mm spiculated nodule in the superior segment of left lower lobe best demonstrated on series 6, image 31. Recommend follow-up sca n in 3 to 6 months. Other left-sided nodules as described. 2. 9.4 mm subpleural nodule on the right which was measured at approximately 8 mm on prior study. COMPARISON: None. TECHNIQUE: CT scan of the abdomen and pelvis performed without intravenous contrast and withoutoral contrast using helical scanning technique with dynamic intravenous contrast injection. Images review ed with lung, soft tissue and bone windows. Reconstructed coronal and sagittal MPR images reviewed. All images stored on PACS. All CT scanners at this facility use dose modulation, iterative reconstruction, and/or weight based d osing when appropriate to reduce radiation dose to as low as reasonably achievable (ALARA). [facility]: Dose Right [facility]: SureCare [facility]: Dose Right [facility]: Teradose 4D [facility]: [employer] RADIATION DOSE: CT Rad equipment meets quality standard of care and radiation dose reduction techniq ues were employed. CTDIvol: 11.2 - 12.8 mGy. DLP: 1135 mGy-cm.mGy. LIMITATIONS: None. FINDINGS: LIVER: Normal size. No masses. No dilated ducts. SPLEEN: Normal size. No focal lesions. PANCREAS: No masses. No significant calcifications. No adjacent inflammation or peripancreatic flui d collections. Pancreatic duct not dilated. GALLBLADDER: Surgically absent. ADRENAL GLANDS: Stable left adrenal fullness most likely hyperplasia. RIGHT KIDNEY AND URETER: No solid masses. Assessment limited by lack of IV contrast. No significant c alcification. No hydronephrosis or hydroureter. Stable small right renal cyst in the inferior pole. LEFT KIDNEY AND URETER: No solid masses. Assessment limited by lack of IV contrast. No significant ca lcification. No hydronephrosis or hydroureter. Stable left renal cyst. AORTA AND VESSELS: No aneurysm. RETROPERITONEUM: No retroperitoneal adenopathy, hemorrhage or masses. APPENDIX: Surgically absent. LARGE AND SMALL BOWEL: Postsurgical changes. No obstruction. ABDOMINAL WALL: No hernia or masses. PERITONEAL CAVITY: No free air. No free fluid. No peritoneal implants or masses. PELVIS: No mass or free fluid. Normal bladder. 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 OTHER: No other significant finding. IMPRESSION: No evidence of metastatic disease in the abdomen or pelvis. TECHNICAL DOCUMENTATION: JOB ID: [id number] Quality ID # 436: Final reports with documentation of one or more dose reduction techniques (e.g., Au tomated exposure control, adjustment of the mA and/or kV according to patient size, use of iterative reconstruction technique) 2010 [employer]- All Rights Reserved Reading location - IP/workstation name: [email or web address]
--- NOTE | 2020-09-19 09:07 | RADIOLOGY REPORT (SQ) ---
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 Images reviewed with lung, soft tissue and bone windows. Reconstructed coronal and sagittal MPR images reviewed. All images stored on PACS. All CT scanners at this facility use dose modulation, iterative reconstruction, and/or weight based d osing when appropriate to reduce radiation dose to as low as reasonably achievable (ALARA). [facility]: Dose Right [facility]: CareDose [facility]: Dose Right [facility]: Teradose 4D [facility]: [employer] RADIATION DOSE: CT Rad equipment meets quality standard of care and radiation dose reduction techniq ues were employed. CTDIvol: 11.2 - 12.8 mGy. DLP: 1135 mGy-cm. mGy. LIMITATIONS: None. FINDINGS: AXILLAE: No adenopathy. CHEST WALL: No masses. No subcutaneous air. LUNGS: Stable bilateral emphysematous change. New 8 mm nodule in the superior segment of the left lo wer lobe. This is best demonstrated on series 6, image 31. There is a smaller 2.8 mm nodule seen on the same image adjacent to the fissure which is new from prior study as well. Small 2.8 mm nodule i n the left upper lobe best demonstrated on series 6, image 37. There is scarring in the right lower lobe. There is a 9.4 subpleural nodule on series 6, image 55 slightly spiculated. This measured 8 m m on prior study. This change may be due to slight difference in scan technique and angle. There is a new ground-glass opacity on series 6, image 62. This measures 1.3 cm. Interstitial airspace dise ase in the right medial base previously noted is markedly improved. PLEURA: No effusions. No calcifications. THYROID: No masses or significant asymmetry. HILAR AND MEDIASTINAL STRUCTURES: No identified masses or abnormal nodes. AORTA AND GREAT VESSELS: No aneurysm. HEART: No pericardial effusion. HARDWARE AND LIFELINES: None. BONES: No significant finding. OTHER: No other significant finding. IMPRESSION: 1. New left-sided pulmonary nodules. Most suspicious in 8 mm spiculated nodule in the superior segment of left lower lobe best demonstrated on series 6, image 31. Recommend follow-up sca n in 3 to 6 months. Other left-sided nodules as described. 2. 9.4 mm subpleural nodule on the right which was measured at approximately 8 mm on prior study. COMPARISON: None. TECHNIQUE: CT scan of the abdomen and pelvis performed without intravenous contrast and withoutoral contrast using helical scanning technique with dynamic intravenous contrast injection. Images review ed with lung, soft tissue and bone windows. Reconstructed coronal and sagittal MPR images reviewed. All images stored on PACS. All CT scanners at this facility use dose modulation, iterative reconstruction, and/or weight based d osing when appropriate to reduce radiation dose to as low as reasonably achievable (ALARA). [facility]: Dose Right [facility]: [employer] [facility]: Dose Right [facility]: Teradose 4D [facility]: [employer] RADIATION DOSE: CT Rad equipment meets quality standard of care and radiation dose reduction techniq ues were employed. CTDIvol: 11.2 - 12.8 mGy. DLP: 1135 mGy-cm.mGy. LIMITATIONS: None. FINDINGS: LIVER: Normal size. No masses. No dilated ducts. SPLEEN: Normal size. No focal lesions. PANCREAS: No masses. No significant calcifications. No adjacent inflammation or peripancreatic flui d collections. Pancreatic duct not dilated. GALLBLADDER: Surgically absent. ADRENAL GLANDS: Stable left adrenal fullness most likely hyperplasia. RIGHT KIDNEY AND URETER: No solid masses. Assessment limited by lack of IV contrast. No significant c alcification. No hydronephrosis or hydroureter. Stable small right renal cyst in the inferior pole. LEFT KIDNEY AND URETER: No solid masses. Assessment limited by lack of IV contrast. No significant ca lcification. No hydronephrosis or hydroureter. Stable left renal cyst. AORTA AND VESSELS: No aneurysm. RETROPERITONEUM: No retroperitoneal adenopathy, hemorrhage or masses. APPENDIX: Surgically absent. LARGE AND SMALL BOWEL: Postsurgical changes. No obstruction. ABDOMINAL WALL: No hernia or masses. PERITONEAL CAVITY: No free air. No free fluid. No peritoneal implants or masses. PELVIS: No mass or free fluid. Normal bladder. 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 OTHER: No other significant finding. IMPRESSION: No evidence of metastatic disease in the abdomen or pelvis. TECHNICAL DOCUMENTATION: JOB ID: [id number] Quality ID # [id number]: Final reports with documentation of one or more dose reduction techniques (e.g., Au tomated exposure control, adjustment of the mA and/or kV according to patient size, use of iterative reconstruction technique) 2010 [employer]- All Rights Reserved Reading location - IP[facility]workstation name: [email or web address]
== END ==
LOC: RAD 07:33
PROVIDERS: ATTEND Physician Assistant Medical
DX: C25.0 Malignant neoplasm of head of pancreas (principal)
CPT/HCPCS: 71250; 74176